=== PATIENT | male | born 1955 | race Caucasian/White ===

== ENCOUNTER 2017-06-08 14:18 | Inpatient (IN) | payer SELFPAY ==
[~2017-06-08] VITALS: Ht 182.9 cm; Wt 100.6 kg
[~2017-06-08 14:18] MED LIST: FOLIC ACID1 MG PO; GLUCOTROL ER2.5 MG PO; HYDRALAZINE HCL50 MG PO; MULTI-DAY VITAM1 TAB PO; NORVASC10 MG PO; PHOSLO667 MG PO; THIAMINE HCL50 MG PO
[2017-06-08 16:18] LABS: BASOPHILS 0.2 % (0-2); EOSINOPHILS 0 % (0-7); HEMATOCRIT 29.4 % (42.0-54.0); IMMATURE GRANULOCYTES 0.2 % (0-5); MCH 34.4 pg (26.0-34.0); MEAN PLATELET VOLUME 10.1 fL (7.4-10.4); MONOCYTES 5.4 % (2-11); NEUTROPHILS 90.2 % (40-80); RBC 2.91 10x6/uL (4.20-6.10); RDW 13.5 % (11.5-14.5); WBC 4.3 10x3/uL (4.8-10.8)
[2017-06-08 16:32] LABS: PLATELET COUNT 98 10x3/uL (130-400)
[2017-06-08 16:53] LABS: PLATELET ESTIMATE DECREASED
[2017-06-08 17:00] LABS: INR 1.13 (0.85-1.17); PROTIME 14.4 SECONDS (11.6-15.0)
[2017-06-08 17:07] LABS: ALBUMIN 3.3 g/dL (3.4-5.0); ALKALINE PHOSPHATASE 41 U/L (46-116); ALT (SGPT) 25 U/L (10-68); BILIRUBIN - TOTAL 0.63 mg/dL (0.2-1.3); CALCIUM 8.5 mg/dL (8.5-10.1); CARBON DIOXIDE 14.5 mmol/L (21.0-32.0); CHLORIDE - SERUM 98 mmol/L (98-107); CREATINE KINASE 268 UL (21-232); CREATININE - SERUM 14.6 mg/dL (0.6-1.3); MAGNESIUM - SERUM 2.2 mg/dL (1.8-2.4); PROTEIN - SERUM 7.6 g/dL (6.4-8.2); SODIUM 133 mmol/L (136-145); UREA NITROGEN 104 mg/dL (7-18); eGFR NON AFRICAN AMERICAN 4 mL/min (90-120)
[2017-06-08 17:09] LABS: CALC OSMOLALITY 300 mosm/kg (275-300); GLUCOSE 139 mg/dL (74-106); TROPONIN-I 0.843 ng/mL (0.000-0.060)
[2017-06-08 17:11] LABS: POTASSIUM - SERUM 7.5 mmol/L (3.5-5.1)
[2017-06-08 17:28] LABS: APPEARANCE CLEAR (CLEAR); BILIRUBIN NEGATIVE (NEGATIVE); COLOR YELLOW (YELLOW); GLUCOSE 100 mg/dL (NEGATIVE); KETONE NEGATIVE (NEGATIVE); NITRITE NEGATIVE (NEGATIVE); PROTEIN 1+ mg/dL (NEGATIVE); SPECIFIC GRAVITY 1.015 (1.005-1.020); UROBILINOGEN NORMAL (NORMAL)
[2017-06-08 17:35] LABS: UDS - AMPHET NEGATIVE QUAL (NEGATIVE); UDS - BARB NEGATIVE QUAL (NEGATIVE); UDS - BENZO POSITIVE QUAL (NEGATIVE); UDS - COCAINE NEGATIVE QUAL (NEGATIVE); UDS - OPIATE NEGATIVE QUAL (NEGATIVE); UDS - PCP NEGATIVE QUAL (NEGATIVE); UDS - THC POSITIVE QUAL (NEGATIVE)
[2017-06-08 17:40] LABS: PRO BNP 154555 pg/mL (0-125)
[2017-06-08 17:41] LABS: CKMB 4.1 U/L (0.0-3.6)
[2017-06-09] VITALS (20 sets, daily range): BP systolic 103–181; BP diastolic 44–114; Ht 182.9 cm; Wt 100.6 kg
--- NOTE | 2017-06-09 00:15 | NUR ---
PT RECIEVED FROM ER. HOOKED TO ICU MONITORING. POSITIONED FOR COMFORT. WILL CONTINUE TO MONITOR PT.
--- NOTE | 2017-06-09 01:00 | NUR ---
PT VERY RESTLESS AND WILL NOT KEEP MONITORS ON. NOTIFIED THAT THE PT HER IN UNIT. RECIEVED NEW ORDERES. WILL CONTINUE TO MONITOR PT.
--- NOTE | 2017-06-09 03:00 | NUR ---
REASSESSMENT COMPLETED. NO ACUTE CHANGES AT THIS TIME. SEE FLOW SHEET FOR FURTHER DETAILS. PT REQUESTED TO USE THE RESTROOM HELPED TO THE BED SIDE COMMODE. DID NOT HAVE A BM. HELPED PT BACK TO BED, WILL CONTINUE TO MONITOR PT.
[2017-06-09 04:45] LABS: BASOPHILS 0 % (0-2); EOSINOPHILS 0 % (0-7); HEMATOCRIT 28.2 % (42.0-54.0); HEMOGLOBIN 9.5 g/dL (13.5-17.5); IMMATURE GRANULOCYTES 0.4 % (0-5); LYMPHOCYTES 3.7 % (15-50); MCH 34.2 pg (26.0-34.0); MCHC 33.7 g/dL (31.0-37.0); MCV 101.4 fL (80.0-100.0); MEAN PLATELET VOLUME 10.3 fL (7.4-10.4); MONOCYTES 4.2 % (2-11); NEUTROPHILS 91.7 % (40-80); PLATELET COUNT 99 10x3/uL (130-400); RBC 2.78 10x6/uL (4.20-6.10); RDW 13.6 % (11.5-14.5)
[2017-06-09 04:46] LABS: WBC 5.7 10x3/uL (4.8-10.8)
[2017-06-09 04:55] LABS: ALBUMIN 3.3 g/dL (3.4-5.0); ANION GAP 32.2 mmol/L (8-16); BILIRUBIN - TOTAL 0.68 mg/dL (0.2-1.3); CALCIUM 8.6 mg/dL (8.5-10.1); CARBON DIOXIDE 13.7 mmol/L (21.0-32.0); CREATININE - SERUM 15.6 mg/dL (0.6-1.3); PROTEIN - SERUM 7.6 g/dL (6.4-8.2)
[2017-06-09 04:58] LABS: POTASSIUM - SERUM 7.9 mmol/L (3.5-5.1)
--- NOTE | 2017-06-09 05:00 | NUR ---
FOUND PT AT THE DOOR ASKING TO USE THE RESTROOM WHICH HE HAD ALREADY USED ON THE FLOOR HELPED PT BACK TO COMMODE. CLEANED THE FLOOR AND THE ROOM. THE HELPED PT BACK TO BED AND POSITIONED FOR COMFORT. WILL CONTINUE TO MONITOR PT
--- NOTE | 2017-06-09 07:00 | NUR ---
REPORT RECIEVED FROM OFF GOING NURSE. SEE FLOW SHEET FOR ASSESSMENT. PT MOANING AND GROANING. PT IS ALERT AND RESPONDS TO HIS NAME, BUT HE WILL ONLY LOOK AT YOU. ABLE TO SAY YES AND NO BUT GARBLED SPEECH. DENIES PAIN AT THIS TIME. K 7.9. WILL RECIEVE DIALYSIS THIS AM. BREATHING NORMAL AND UNLABORD. CALL LIGHT IN REACH. WILL CONT POC
--- NOTE | 2017-06-09 09:00 | NUR ---
DYALSYSIS NURSE AT BEDSIDE.
--- NOTE | 2017-06-09 10:30 | NUR ---
PT RECIEVEING DIALYSIS. BP STABLE AT 120/90 HOWEVER HEART RATE UNCONTROLLED AFIB 120-150. DR MESA IN ICU AND NOTIFIED. NEW ORDRES FOR CARDIZEM GTT AT 10. PT RESTING WITH EYES CLOSED WITH EVEN AND UNLABORED RESP. WILL CONT POC.
--- NOTE | 2017-06-09 11:00 | NUR ---
PT BECOMING MORE ALERT BUT CONFUSED. ABLE TO ASK QUESTIONS IN A GARBLED SPEECH. VERY DISORGANZIED THOUGHT PROCESS. MOANS AND GROANS BUT DENIES PAIN. VSS. CALL LIGHT IN REACH. WILL CONT POC.
--- NOTE | 2017-06-09 13:00 | NUR ---
PT RIPPED OUT PIV IN NECK TRYING TO GET TO THE BSC. PT ALERT BUT CONFUSED. BLEEDING STOPPED AND DRESSING TO NECK APPLIED. PT PERIAREA CLEANSED. ATTEMPTED TO START IV X2 THIS NURSE AND X2 ANOTHER NURSE. DR MESA PAGED. HEART RATE 110 AFIB.
--- NOTE | 2017-06-09 14:00 | NUR ---
PT REFUSING TO HAVE BP AND PULSE OX TAKEN.
--- NOTE | 2017-06-09 14:00 | NUR ---
DR MESA CALLED BACK WITH NEW ORDRES TO DC CARDIZEM GTT AND TO START PO.
[2017-06-09 16:30] LABS: CALCIUM 8.4 mg/dL (8.5-10.1)
--- NOTE | 2017-06-09 16:30 | NUR ---
POTASSIUM LVL 4.9. DR BONITA GANN. N.O TO TRANSFER TO [facility] 2
[2017-06-09 16:32] LABS: ANION GAP 20.2 mmol/L (8-16); CARBON DIOXIDE 24.4 mmol/L (21.0-32.0); CREATININE - SERUM 7.7 mg/dL (0.6-1.3); POTASSIUM - SERUM 4.6 mmol/L (3.5-5.1)
--- NOTE | 2017-06-09 18:35 | NUR ---
PT COMPLAINING OF GENERLIZED PAIN. DR BONITA GANN. N.O FOR TYLENOL 650MG Q4H PRN.
--- NOTE | 2017-06-09 19:15 | NUR ---
REPORT REC'D, PATIENT CARE ASSUMED. ASSESSMENT COMPLETED. SEE FLOW SHEETS FOR ALL FINDINGS. PT RESTLESS IN BED C/O PAIN TO BACK. REFUSED TYLENOL AT THIS TIME .REPOSITIONED FOR COMFORT. UNCONT A-FIB TO 120S. REORIENTED TO SITUATION AND TIME. LEFT ARM FISTULA DRESSING C,D,I. CALL LIGHT IN REACH. BED IN LOW POSITION AND LOCKED. HOB UP. SIDE RAILS UP X2. CALL LIGHT IN REACH. CONT DROPLET ISOLATION PER PROTOCOL. CONT TO MONITOR.
--- NOTE | 2017-06-09 21:15 | NUR ---
PT AGITATED AND RESTLESS C/O OF BACK PAIN, SCREAMING. HR ON MONITOR UNCONT A-FIB TO 150. CARDIZEM 60MG PO GIVEN AT 2008. DR GLOVER CALLED.
--- NOTE | 2017-06-09 21:45 | NUR ---
DR SPANN CALLED BACK, UPDATED ON PT'S STATUS. ORDER REC'D.
--- NOTE | 2017-06-09 23:00 | NUR ---
PT RESTING QUIELTY WITHOUT DISTRESS. CONT UNCONT A-FIB ON CM WITH HR TO 112. NO NEEDS VOICES AT THIS TIME. CPOC.
[2017-06-10] VITALS (9 sets, daily range): BP systolic 114–181; BP diastolic 62–87
--- NOTE | 2017-06-10 01:00 | NUR ---
PT RESTING QUIETLY WITHOUT DISTRESS.NO NEEDS VOICES AT THIS TIME. CALL LIGHT IN REACH. CPOC.
--- NOTE | 2017-06-10 03:00 | NUR ---
PT RESTING QUIETLY WITHOUT DISTRESS. NO NEEDS VOICES. CPOC.
--- NOTE | 2017-06-10 05:00 | NUR ---
PT INCONTINENT OF STOOL, TRYING TO GET TO BSC. BATH GIVEN. LINEN AND GOWN CHANGED. ASSISTED BACK TO BED. REPOSITIONED SELF IN BED, CALL LIGHT IN REACH.
--- NOTE | 2017-06-10 07:00 | NUR ---
REC'D REPORT AND RESUMED CARE, AWAKE AND CONFUSED, O2 VIA NC AT 2L, SAT 97%, LEFT UPPER ARM FISTULA, HR RATE 142, ANSWERS QUESTIONS IN WITH HESITATION, ASSESSMENT COMPLETE PER FLOWSHEET, IN DROPLET ISOLATION, BREAKFAST TRAY TO BEDSIDE, SPOKE WITH DR BROOKS, AM LABS ORDERED, LEFT UPPER ARM FISTULA WITH BRUIE THRILL, CALL LIGHT IN REACH, SELF REPOSITIONS, HOB AT 45 DEGREES, BED IN LOW POSITION, AWAITING TRANSFER TO [facility]
--- NOTE | 2017-06-10 08:00 | NUR ---
BREAKFAST TRAY TO BEDSIDE, INDEPENDENT WITH SET UP AND EATING
--- NOTE | 2017-06-10 08:30 | NUR ---
REPORT CALLED TO JAKE ON MED 2
--- NOTE | 2017-06-10 10:00 | NUR ---
FAMILY AT BEDSIDE. STATUS UPDATED, DISCUSSED TRANSFERING TO ROOM 2134, LOTION TO ROOM FOR TO RUB PATIENTS FEET, NO OTHER NEEDS AT THIS TIME
--- NOTE | 2017-06-10 10:15 | NUR ---
TRANSFERRED TO 2133 VIA BED, AA, ORIENTED X2, HR 140, UCAF, PO CARDIZEM GIVEN, PER SEP ORDER, PRIMARY NURSE JAZMINE CALLED TO BEDSIDE, NO NEEDS AT THIS TIME
--- NOTE | 2017-06-10 10:29 | NUR ---
SITTING UP IN BED VISITING WITH FAMILY. ALERT AND ORIENTED X4. CONTINUES ON O2 AT 2L VIA NC. ORIENTED TO ROOM AND CALL LIGHT AND TV FUNCTIONS. BED IN LOWEST POSITION, SR X2, URINAL WITHIN REACH. FAMILY AT BEDSIDE. WILL CONTINUE TO MONITOR
[2017-06-10 10:40] LABS: BASOPHILS 0.3 % (0-2); EOSINOPHILS 0.3 % (0-7); HEMATOCRIT 28.4 % (42.0-54.0); HEMOGLOBIN 9.7 g/dL (13.5-17.5); IMMATURE GRANULOCYTES 0.3 % (0-5); MCHC 34.2 g/dL (31.0-37.0); MCV 99.6 fL (80.0-100.0); MEAN PLATELET VOLUME 10.3 fL (7.4-10.4); MONOCYTES 4.5 % (2-11); NEUTROPHILS 83.6 % (40-80); PLATELET COUNT 96 10x3/uL (130-400); RBC 2.85 10x6/uL (4.20-6.10); RDW 13.2 % (11.5-14.5)
[2017-06-10 10:47] LABS: ALBUMIN 2.9 g/dL (3.4-5.0); ANION GAP 19.2 mmol/L (8-16); CALCIUM 8.2 mg/dL (8.5-10.1); CARBON DIOXIDE 25.1 mmol/L (21.0-32.0); PHOSPHOROUS 8.3 mg/dL (2.5-4.9); POTASSIUM - SERUM 4.3 mmol/L (3.5-5.1)
[2017-06-10 10:49] LABS: WBC 3.4 10x3/uL (4.8-10.8)
[2017-06-10 10:56] LABS: CREATININE - SERUM 9.7 mg/dL (0.6-1.3)
--- NOTE | 2017-06-10 16:09 | NUR ---
RESTING QUIETLY IN BED. STILL MAKES SMALL AMT OF URINE. DENIES PAIN OR INCREASED SOB. DENIES DIARRHEA TODAY
--- NOTE | 2017-06-10 20:09 | NUR ---
PT IN BED RESTING QUIETLY. FAMLIY AT BEDSIDE. BREATHING EVEN AND UNLABORED. WILL CTM.
--- NOTE | 2017-06-10 21:43 | NUR ---
PT C/O PAIN AND ANXIETY. BECOMING AGITATED. PRN ATIVAN AND TYLENOL GIVEN WITH PM MEDS. BREATHING EVEN AND UNLABORED. DENIES ANY OTHER NEEDS AT THIS TIME. BED IN LOW POSITION, CALL LIGHT WITHIN REACH.
--- NOTE | 2017-06-10 23:04 | NUR ---
PT BECAME ANXIOUS AND GOT OUT OF HIS BED AND WALKED OUT INTO THE HALLWAY. PT NOT STEADY ON HIS FEET. TOOK PT BACK TO BED AND HE GOT BACK IN BED BUT IS MOANING AND SHOUTING. BED ALARM TURNED ON. WILL GIVE NEXT PRN DOSE OF ATIVAN WHEN AVAILABLE AT 1130.
--- NOTE | 2017-06-11 01:46 | NUR ---
PT REFSUED MIDNIGHT VITALS.
[2017-06-11 06:37] VITALS: BP 140/66
--- NOTE | 2017-06-11 07:43 | NUR ---
PATIENT IS ALERT WITH SOME CONFUSION. TAKEN DOWN FOR CHEST X-RAY BY STAFF. OXYGEN ON AT 2L PER N/C. PATIENT REMAINS IN DROPLET ISOLATION. RESERVE LEFT ARM.
[2017-06-11 08:00] VITALS: BP 185/87
--- NOTE | 2017-06-11 09:37 | NUR ---
FAMILY BROUGHT IN PATIENTS HOME MEDICATIONS. DR. WHITING INTO SEE PATIENT. GIVEN LIST OF HOME MEDICATIONS
--- NOTE | 2017-06-11 10:36 | NUR ---
GIS DEVELOPER IN ROOM STARTING DIALYSIS. PATIENT GIVEN PRN ATIVAN FOR ANXIEITY
[2017-06-11 12:00] VITALS: BP 153/82
--- NOTE | 2017-06-11 12:28 | NUR ---
TALKED WITH PATIENT. PATIENT REFUSING TO BE STUCK BY DIALYSIS
--- NOTE | 2017-06-11 12:34 | NUR ---
PATIENT REFUSED DIALYSIS. PATIENT REFUSED INSULIN TWO UNITS FOR GLUCOSE LEVEL OF 179. STATES HE IS REFUSING TO BE STUCK.
--- NOTE | 2017-06-11 12:35 | NUR ---
PATIENT REFUSED RENVELA
[2017-06-11 16:00] VITALS: BP 177/81
--- NOTE | 2017-06-11 17:16 | NUR ---
GLUCOSE LEVEL 188. PATIENT LEFT THIS NURSE GIVE TWO UNITS OF SLIDING SCALE INSULIN PER ORDER
--- NOTE | 2017-06-11 18:18 | NUR ---
PATIENTS SON CALLED WITH REGARDS TO UPDATE FOR THIS PATIENT. SON STATED THAT HE WILL BE IN AND TAKE PATIENTS HOME MEDICATION HOME.
--- NOTE | 2017-06-11 20:00 | NUR ---
PT TELLS HIGHWAY MAINTAINER ON ROUNDS FOR VS THAT HE ROLLED OUT OF BED, BUT GOT UP AND GOT BACK INTO BED ON HIS OWN. NURSE TO ROOM. ASSESSED PT. HE STATES HE ROLLED OUT OF THE BED AND HIT HIS HEAD. ASSESSED HEAD. NO CONTUSIONS/BRUISES OR BLOOD AND NO SPECIFIC AREA INDICATED BY PATIENT. HE TELLS NURSE HE NEEDS A PAIN SHOT. NEURO VS CHECKED. ALL WNL. EXPLAINED TO PT THAT IF HE HIT HIS HEAD, THEN MD WILL BE CONTACTED FOR ORDERS TO HAVE HIS HEAD EXAMINED. PT STATES "I DON'T NEED THAT" AND TELLS NURSE TO JUST GET HIM SOME PAIN MED FOR HIS BACK. ASKED PT IS HE MEANT HIS HEAD AND HE SAID "OH, YEAH MY BACK HURTS FOR THE LAST COUPLE OF MONTHS". ASSESSED BACK AND THERE ARE NO SIGNS OF ABRASIONS/BRUISING OR SWELLING. EXPLAINED TO PT THAT MD WILL BE CONTACTED TO NOTIFY OF FALL. PT STATES HE ONLY WANTS PAIN MEDS, HE DOES NOT NEED HIS HEAD EXAMINED. FALL PRECAUTIONS INSTATED. SR UP X 2 AND BED ALARM ACTIVATED.
[2017-06-11 21:07] VITALS: BP 153/62
--- NOTE | 2017-06-11 21:15 | NUR ---
SPOKE WITH PATIENT AFTER TALKING TO DR WHITING AND SAID IF ANY PART OF HIM NEEDS TO BE XRAYED OR EXAMINED TO PLEASE LET NURSE KNOW AND THAT ALL THE MD WANTED HIM TO TAKE FOR PAIN WAS TYLENOL. PT DISGRUNTLED ABOUT THIS INFORMATION.
--- NOTE | 2017-06-11 21:22 | NUR ---
DR ALY NOTIFIED OF PT FALL. NEW ORDERS RECIEVED.
--- NOTE | 2017-06-11 21:45 | NUR ---
SPOKE WITH PAXTON ON PHONE AND SHE SAID SHE IS "LIKE A DAUGHTER". REPORTED PT'S REPORT THAT HE FELL OUT OF BED BUT REFUSING ANY TREATMENT. PAXTON STATES PT IS JUST LONELY AND WANTS COMPANY BUT SHE IS IN [place]. SHE DID TALK TO HIM IN ROOM ON PHONE.
--- NOTE | 2017-06-11 23:46 | NUR ---
BEDTIME MEDS GIVEN. FSBS 185, 2 UNITS OF HUMULIN R GIVEN IN ABDOMEN. PT TRYING TO GET NURSE TO GIVE IT BEHIND HIS LEFT ARM GRAFT. INSTRUCTED PT THAT HIS DIALYSIS ARM SHOULD NOT BE STUCK/POKED OR EVEN HAD BP'S TAKEN IN IT. PT UNCONCERNED. NEURO CHECKS AGAIN SINCE PATIENT IS SAYING HE HIT HIS HEAD WHEN HE ROLLED OUT OF BED. TARAH@ 2MM. NO CONTUSIONS/SWELLINGS/ABRASIONS OR BURRIS NOTED ON PT'S BACK OR HEAD. WILL CONTINUE TO MONITOR. DID GIVE HIM ATIVAN 2MG BY MOUTH TO HELP HIM BE CALMER. HE HAS LAID IN BED MOANING AND GROANING AND EVEN CONTINUES THIS ACTIVITY WHEN NURSE IN ROOM TALKING TO HIM.
[2017-06-12 00:42] VITALS: BP 176/85
--- NOTE | 2017-06-12 02:01 | NUR ---
RESTING IN BED. HAS TURNED OFF TV AND IS TRYING TO SLEEP. CALL LIGHT IN REACH. FALL PRECAUTIONS. CPOC.
[2017-06-12 04:46] VITALS: BP 144/69
--- NOTE | 2017-06-12 07:20 | NUR ---
ASSESSMENT COMPLETED.PT IS ON 02 AT 2 L/M PER NC. NO IV. LEFT FORE ARM GRAFT FOR DIALYSIS. PT IS ON DROPPLET ISOLATION. ALERT AND ORIENTED. SR UP WITH CALL LIGHT IN REACH
--- NOTE | 2017-06-12 07:30 | NUR ---
RESTING QUIETLY EYES CLOSED RESP UNLABORED NAD NOTED
[2017-06-12 08:00] VITALS: BP 187/88
[2017-06-12 12:00] VITALS: BP 178/74
[2017-06-12 16:00] VITALS: BP 157/89
--- NOTE | 2017-06-12 18:04 | NUR ---
LYING QUIETLY WITH NO COMPLAINTS. ON AT 2 L/M PER NC. WILL MONITOR
--- NOTE | 2017-06-12 19:32 | NUR ---
RESUMED CARE OF PT, LYING IN BED RESPIRATIONS EVEN AND UNLABORED ON 2LPM VIA NC. CALL LIGHT IN REACH. NO NEEDS NOTED AT THIS TIME, WILL CONTINUE TO MONITOR. SEE NURSE ASSESSMENT.
[2017-06-12 20:17] VITALS: BP 101/61
--- NOTE | 2017-06-12 23:12 | NUR ---
LYING IN BED WITH EYES CLOSED, CALL LIGHT IN REACH. WILL CONTINUE TO MONITOR.
[2017-06-13 00:32] VITALS: BP 148/55
[2017-06-13 05:22] VITALS: BP 150/71
[2017-06-13 05:40] LABS: BASOPHILS 0.3 % (0-2); EOSINOPHILS 1.3 % (0-7); HEMATOCRIT 24.6 % (42.0-54.0); HEMOGLOBIN 8.7 g/dL (13.5-17.5); IMMATURE GRANULOCYTES 0.3 % (0-5); LYMPHOCYTES 25.2 % (15-50); MCH 34.1 pg (26.0-34.0); MCHC 35.4 g/dL (31.0-37.0); MCV 96.5 fL (80.0-100.0); MEAN PLATELET VOLUME 10.2 fL (7.4-10.4); MONOCYTES 5.7 % (2-11); NEUTROPHILS 67.2 % (40-80); PLATELET COUNT 111 10x3/uL (130-400); RBC 2.55 10x6/uL (4.20-6.10); RDW 12.8 % (11.5-14.5); WBC 3.2 10x3/uL (4.8-10.8)
[2017-06-13 06:07] LABS: ALBUMIN 2.6 g/dL (3.4-5.0); ANION GAP 22.7 mmol/L (8-16); CALCIUM 7.3 mg/dL (8.5-10.1); CARBON DIOXIDE 21.9 mmol/L (21.0-32.0); CREATININE - SERUM 12.3 mg/dL (0.6-1.3); POTASSIUM - SERUM 4.6 mmol/L (3.5-5.1)
[2017-06-13 06:10] LABS: PHOSPHOROUS 9.7 mg/dL (2.5-4.9)
[2017-06-13 08:00] VITALS: BP 153/93
--- NOTE | 2017-06-13 09:36 | NUR ---
ASSESSMENT DONE. DENIES NEEDS.
--- NOTE | 2017-06-13 09:48 | NUR ---
PATIENT IS SLEEPING AT THIS TIME, NAD NOTED. CHEST RISES AND FALLS EQUALLY. BED LOW AND LOCKED. CALL LIGHT IN REACH. CPOC
[2017-06-13] MEDS ORDERED: ZOLOFT50 MG PO (10:57)
[2017-06-13 12:00] VITALS: BP 160/67
--- NOTE | 2017-06-13 14:20 | NUR ---
DC HOME PER PERSONAL CAR
--- NOTE | 2017-06-13 14:20 | NUR ---
DC GIVEN TO PT
--- NOTE | 2017-06-13 14:28 | NUR ---
Patient Name: RASHIDA OVIEDO Admission Status: ER Accout number: [id number] Admission Date: 06-08-2017 : 1955 Admission Diagnosis:ALTERED MENTAL STATUS, UNSPECIFIED Attending: CHETNA Current LOS: 5 Anticipated DC Date: 06-13-2017 Planned Disposition: Home Primary Insurance: UNINSURED DISCOUNT PLAN Discharge Planning Comments: * Is the patient Alert and Oriented? Yes 0 * How many steps to enter\exit or inside your home? 3 0 * PCP NONE 0 * Pharmacy [facility] ON [address] 0 * Preadmission Environment Home with Family 0 * ADLs Independent 0 * Equipment None 0 * Other Equipment NO MEDICAL EQUIPMENT PROVIDER PREFERENCE 0 * List name and contact numbers for known caregivers / representatives who currently or will assist patient after discharge: CLAY OVIEDO, BROTHER, 0 * Community resources currently utilized Other 0 * Please name any agencies selected above. OUTPATIENT DAILYSIS, [facility], [place], [facility], SON DRIVES PT TO AND FROM DIALYSIS. 0 * Additional services required to return to the preadmission environment? No 0 * Can the patient safely return to the preadmission environment? Yes 0 * Has this patient been hospitalized within the prior 30 days at any hospital? No 0 CM MET WITH PT IN ROOM TO DISCUSS DISCHARGE PLANNING AND NEEDS. PT REPORTS LIVING AT HOME INDEPENDENTLY WITH HIS ADULT SISTER AND MOM. PT HAS NO MEDICAL EQUIPMENT AND NO OUTSIDE SERVICES ASSISTING IN THE HOME. PT GOES TO [facility] ON [facility], [place] [address] SCHEDULE, HIS SON DRIVES HIM TO AND FROM DIALYSIS.CM DISCUSSED AVAILABILITY OF HOME HEALTH, REHAB SERVICES AND MEDICAL EQUIPMENT. PT DENIES DISCHARGE NEEDS, REPORTS HIS BROTHER WILL PICK HIM UP TODAY FOR DISCHARGE HOME. PT REPORTS HE MOVED HERE ON WEEK AGO FROM [place], HE CANCELLED HIS [place] MEDICAID POLICY AND NEEDS TO APPLY IN [place]. CM DISCUSSED LOCATION AND HOURS OF THE [facility] DEPARTMENT OF HUMAN SERVICES OFFICE, PT REPORTS KNOWING THE LOCATION AND STATES HE WILL FOLLOW UP WITH THE APPLICATION FOR MEDICAID SERVICES. CM NOTIFIED CASEWORKER NURSE. Psychologist Private Practice: [facility]
== END 2017-06-13 14:20 | disposition home or self-care (01) | DRG 682 ==
LOC: D.ER 14:18 → D.M2 23:50 → D.ICU 23:50 → D.M2 06-10 09:45
PROVIDERS: Emergency Medicine; Family Medicine; Nurse Practitioner Family; ADMIT Internal Medicine
DX: I12.0 Hypertensive chronic kidney disease with stage 5 chronic kidney disease or end stage renal disease (principal); N18.6 End stage renal disease; E87.5 Hyperkalemia; E11.22 Type 2 diabetes mellitus with diabetic chronic kidney disease; Z99.2 Dependence on renal dialysis; R41.82 Altered mental status, unspecified; F12.90 Cannabis use, unspecified, uncomplicated; J44.9 Chronic obstructive pulmonary disease, unspecified; R40.2243 Coma scale, best verbal response, confused conversation, at hospital admission; R40.2353 Coma scale, best motor response, localizes pain, at hospital admission; R40.2143 Coma scale, eyes open, spontaneous, at hospital admission

== ENCOUNTER 2017-07-28 00:07 | Observation (INO) | payer SELFPAY ==
[~2017-07-28] VITALS: Ht 182.9 cm; Wt 95.0 kg
[~2017-07-28 00:07] MED LIST changes: +ZOLOFT50 MG PO
[2017-07-28 00:34] LABS: HEMATOCRIT 24.5 % (42.0-54.0); HEMOGLOBIN 8.3 g/dL (13.5-17.5); LYMPHOCYTES 8.7 % (15-50); MCH 33.5 pg (26.0-34.0); MCHC 33.9 g/dL (31.0-37.0); MCV 98.8 fL (80.0-100.0); MEAN PLATELET VOLUME 9.8 fL (7.4-10.4); NEUTROPHILS 85.2 % (40-80); PLATELET COUNT 108 10x3/uL (130-400); RBC 2.48 10x6/uL (4.20-6.10); RDW 14.1 % (11.5-14.5); WBC 5.5 10x3/uL (4.8-10.8)
[2017-07-28 00:48] LABS: ALBUMIN 2.9 g/dL (3.4-5.0); ANION GAP 23.8 mmol/L (8-16); BILIRUBIN - TOTAL 0.5 mg/dL (0.2-1.3); CALCIUM 7.6 mg/dL (8.5-10.1); CREATININE - SERUM 13.7 mg/dL (0.6-1.3); PROTEIN - SERUM 6.9 g/dL (6.4-8.2)
[2017-07-28 00:50] LABS: POTASSIUM - SERUM 6.8 mmol/L (3.5-5.1)
[2017-07-28 02:17] LABS: APPEARANCE HAZY (CLEAR); BILIRUBIN NEGATIVE (NEGATIVE); COLOR YELLOW (YELLOW); GLUCOSE 100 mg/dL (NEGATIVE); KETONE NEGATIVE (NEGATIVE); NITRITE NEGATIVE (NEGATIVE); PROTEIN 3+ mg/dL (NEGATIVE); SPECIFIC GRAVITY 1.015 (1.005-1.020); UROBILINOGEN NORMAL (NORMAL)
[2017-07-28 02:19] LABS: AMORPHOUS SEDIMENT <1+ /lpf (NONE SEEN); BACTERIA FEW /hpf (NONE SEEN); EPITHELIAL CELLS 0-5 /hpf (0-5); RED CELLS - URINE 0-5 /hpf (0-5); WHITE CELLS - URINE NSEEN /hpf (0-5)
[2017-07-28 04:00] VITALS: BP 120/52
[2017-07-28 04:09] VITALS: BP 98/68; BMI 28.4
[2017-07-28 06:57] VITALS: Ht 182.9 cm; Wt 95.0 kg
[2017-07-28 08:53] VITALS: BP 179/77
[2017-07-28 10:31] LABS: BASOPHILS 0 % (0-2); EOSINOPHILS 0.6 % (0-7); HEMATOCRIT 24.4 % (42.0-54.0); HEMOGLOBIN 8.3 g/dL (13.5-17.5); IMMATURE GRANULOCYTES 0.3 % (0-5); LYMPHOCYTES 22.6 % (15-50); MCH 34.2 pg (26.0-34.0); MCV 100.4 fL (80.0-100.0); MEAN PLATELET VOLUME 10.4 fL (7.4-10.4); NEUTROPHILS 71.5 % (40-80); PLATELET COUNT 120 10x3/uL (130-400); RBC 2.43 10x6/uL (4.20-6.10); RDW 14.1 % (11.5-14.5)
[2017-07-28 10:33] LABS: WBC 3.4 10x3/uL (4.8-10.8)
[2017-07-28 11:06] LABS: ALBUMIN 3.1 g/dL (3.4-5.0); ANION GAP 25.6 mmol/L (8-16); BILIRUBIN - TOTAL 0.56 mg/dL (0.2-1.3); CALCIUM 8.1 mg/dL (8.5-10.1); CARBON DIOXIDE 17.8 mmol/L (21.0-32.0); CREATININE - SERUM 12.3 mg/dL (0.6-1.3); PROTEIN - SERUM 7.1 g/dL (6.4-8.2)
[2017-07-28 11:08] LABS: POTASSIUM - SERUM 5.4 mmol/L (3.5-5.1)
[2017-07-28 12:24] VITALS: BP 179/90
== END 2017-07-28 15:00 | disposition home or self-care (01) ==
LOC: D.ER 00:07 → D.MS 02:22 → OBSVTIME 02:22 → D.MS 15:00
PROVIDERS: Family Medicine
DX: E87.6 Hypokalemia (principal); E11.22 Type 2 diabetes mellitus with diabetic chronic kidney disease; N18.6 End stage renal disease; Z99.2 Dependence on renal dialysis; Z91.15 Patient's noncompliance with renal dialysis; K73.9 Chronic hepatitis, unspecified; F15.10 Other stimulant abuse, uncomplicated; F12.10 Cannabis abuse, uncomplicated; F17.200 Nicotine dependence, unspecified, uncomplicated

== ENCOUNTER 2017-11-01 14:23 | Inpatient (IN) | payer SELFPAY ==
[~2017-11-01] VITALS: Ht 182.9 cm; Wt 93.1 kg
[2017-11-01 15:35] LABS: BASOPHILS 0 % (0-2); EOSINOPHILS 1.4 % (0-7); HEMOGLOBIN 10.5 g/dL (13.5-17.5); IMMATURE GRANULOCYTES 0.2 % (0-5); LYMPHOCYTES 15.2 % (15-50); MCH 31.4 pg (26.0-34.0); MCHC 33.9 g/dL (31.0-37.0); MCV 92.8 fL (80.0-100.0); MONOCYTES 8.1 % (2-11); NEUTROPHILS 75.1 % (40-80); RBC 3.34 10x6/uL (4.20-6.10); RDW 14.6 % (11.5-14.5); WBC 4.3 10x3/uL (4.8-10.8)
[2017-11-01 15:39] LABS: PLATELET COUNT 173 10x3/uL (130-400)
[2017-11-01 16:06] LABS: ALBUMIN 3.3 g/dL (3.4-5.0); ALKALINE PHOSPHATASE 70 U/L (46-116); ALT (SGPT) 26 U/L (10-68); CALC OSMOLALITY 281 mosm/kg (275-300); CARBON DIOXIDE 26.4 mmol/L (21.0-32.0); CHLORIDE - SERUM 102 mmol/L (98-107); CKMB 4.6 U/L (0.0-3.6); CREATINE KINASE 203 UL (21-232); CREATININE - SERUM 5.6 mg/dL (0.6-1.3); GLUCOSE 97 mg/dL (74-106); POTASSIUM - SERUM 4.7 mmol/L (3.5-5.1); PROTEIN - SERUM 7.7 g/dL (6.4-8.2); SODIUM 140 mmol/L (136-145); UREA NITROGEN 20 mg/dL (7-18); eGFR NON AFRICAN AMERICAN 11 mL/min (90-120)
[2017-11-01 16:26] LABS: APPEARANCE CLEAR (CLEAR); BILIRUBIN NEGATIVE (NEGATIVE); COLOR YELLOW (YELLOW); GLUCOSE 100 mg/dL (NEGATIVE); KETONE SMALL mg/dL (NEGATIVE); NITRITE NEGATIVE (NEGATIVE); PROTEIN 3+ mg/dL (NEGATIVE); SPECIFIC GRAVITY 1.005 (1.005-1.020); UROBILINOGEN NORMAL (NORMAL)
[2017-11-01 20:00] VITALS: BP 168/57
[2017-11-01 20:57] VITALS: BP 168/57; BMI 27.6
[2017-11-02] VITALS: BP 91/47
[2017-11-02 04:00] VITALS: BP 94/61
[2017-11-02 08:00] VITALS: BP 171/54
[2017-11-02 12:00] VITALS: BP 177/55
[2017-11-02 12:26] VITALS: Ht 182.9 cm; Wt 93.1 kg
[2017-11-02 17:09] VITALS: BP 172/96
[2017-11-02 21:01] VITALS: BP 142/66
[2017-11-03 06:07] LABS: BASOPHILS 0.3 % (0-2); EOSINOPHILS 2.1 % (0-7); HEMATOCRIT 29.6 % (42.0-54.0); HEMOGLOBIN 9.7 g/dL (13.5-17.5); IMMATURE GRANULOCYTES 0.3 % (0-5); LYMPHOCYTES 33.6 % (15-50); MCH 31.4 pg (26.0-34.0); MCHC 32.8 g/dL (31.0-37.0); MEAN PLATELET VOLUME 10.2 fL (7.4-10.4); MONOCYTES 6.6 % (2-11); NEUTROPHILS 57.1 % (40-80); PLATELET COUNT 145 10x3/uL (130-400); RBC 3.09 10x6/uL (4.20-6.10); RDW 15.1 % (11.5-14.5); WBC 3.8 10x3/uL (4.8-10.8)
[2017-11-03 06:12] LABS: MCV 95.8 fL (80.0-100.0)
[2017-11-03 06:22] VITALS: BP 103/46
[2017-11-03 06:36] LABS: ANION GAP 18.9 mmol/L (8-16); BILIRUBIN - DIRECT 0.25 mg/dL (0.00-0.30); BILIRUBIN - INDIRECT 0.42 mg/dL (0.00-1.00); BILIRUBIN - TOTAL 0.67 mg/dL (0.2-1.3); CALCIUM 7.1 mg/dL (8.5-10.1); CARBON DIOXIDE 24.8 mmol/L (21.0-32.0); POTASSIUM - SERUM 4.7 mmol/L (3.5-5.1); PROTEIN - SERUM 6.8 g/dL (6.4-8.2)
[2017-11-03 06:38] LABS: CREATININE - SERUM 9.8 mg/dL (0.6-1.3); PHOSPHOROUS 9.2 mg/dL (2.5-4.9)
[2017-11-03 08:51] VITALS: BP 76/35
[2017-11-03 11:40] VITALS: BP 100/39
[2017-11-03 16:48] VITALS: BP 148/60
[2017-11-03 22:13] VITALS: BP 137/65
[2017-11-04 01:26] VITALS: BP 160/46
[2017-11-04 05:00] VITALS: BP 155/89
[2017-11-04 05:48] LABS: BASOPHILS 0.2 % (0-2); EOSINOPHILS 2.9 % (0-7); HEMATOCRIT 31.4 % (42.0-54.0); HEMOGLOBIN 10.5 g/dL (13.5-17.5); LYMPHOCYTES 32.9 % (15-50); MCH 31.6 pg (26.0-34.0); MCHC 33.4 g/dL (31.0-37.0); MCV 94.6 fL (80.0-100.0); MEAN PLATELET VOLUME 10.6 fL (7.4-10.4); MONOCYTES 6.8 % (2-11); NEUTROPHILS 57.2 % (40-80); PLATELET COUNT 149 10x3/uL (130-400); RBC 3.32 10x6/uL (4.20-6.10); RDW 14.7 % (11.5-14.5); WBC 4.4 10x3/uL (4.8-10.8)
[2017-11-04 06:08] LABS: ANION GAP 16.1 mmol/L (8-16); CALCIUM 7.7 mg/dL (8.5-10.1); CARBON DIOXIDE 25.3 mmol/L (21.0-32.0); CREATININE - SERUM 8.9 mg/dL (0.6-1.3); PHOSPHOROUS 7.6 mg/dL (2.5-4.9); POTASSIUM - SERUM 4.4 mmol/L (3.5-5.1)
[2017-11-04 08:38] VITALS: BP 140/65
[2017-11-04 10:22] LABS: HEPATITIS C ANTIBODY >11.0 (0.0-0.9)
[2017-11-04 11:40] VITALS: BP 152/69
[2017-11-04 15:47] VITALS: BP 149/77
[2017-11-04 20:00] VITALS: BP 162/71
[2017-11-05 01:00] VITALS: BP 166/98
[2017-11-05 05:00] VITALS: BP 148/74
[2017-11-05 05:37] LABS: BASOPHILS 0.2 % (0-2); HEMATOCRIT 29.4 % (42.0-54.0); HEMOGLOBIN 9.8 g/dL (13.5-17.5); IMMATURE GRANULOCYTES 0.2 % (0-5); LYMPHOCYTES 28.2 % (15-50); MCH 31.3 pg (26.0-34.0); MCHC 33.3 g/dL (31.0-37.0); MCV 93.9 fL (80.0-100.0); MEAN PLATELET VOLUME 10.1 fL (7.4-10.4); MONOCYTES 6.8 % (2-11); NEUTROPHILS 62.6 % (40-80); PLATELET COUNT 144 10x3/uL (130-400); RBC 3.13 10x6/uL (4.20-6.10); RDW 14.5 % (11.5-14.5); WBC 4.5 10x3/uL (4.8-10.8)
[2017-11-05 06:04] LABS: ANION GAP 15.8 mmol/L (8-16); CALCIUM 7.4 mg/dL (8.5-10.1); CARBON DIOXIDE 25.1 mmol/L (21.0-32.0); CREATININE - SERUM 10.7 mg/dL (0.6-1.3); POTASSIUM - SERUM 4.9 mmol/L (3.5-5.1)
[2017-11-05 06:07] LABS: PHOSPHOROUS 9.9 mg/dL (2.5-4.9)
[2017-11-05 08:15] VITALS: BP 140/98
[2017-11-05] MEDS ORDERED: CATAPRES0.2 MG PO (09:45)
[2017-11-05] MEDS ORDERED: NORMODYNE / TR200 MG PO (09:46)
[2017-11-05 11:31] VITALS: BP 159/71
== END 2017-11-05 15:14 | disposition home or self-care (01) | DRG 304 ==
LOC: D.ER 14:23 → D.M2 17:52 → D.EDHOLD 17:52 → OBSVTIME 17:52 → D.M2 18:20
PROVIDERS: Emergency Medicine; Internal Medicine Nephrology
PROC: 5A1D70Z Performance of Urinary Filtration, Intermittent, Less than 6 Hours Per Day (ICD-10-PCS; principal; 2017-11-03)
DX: I16.0 Hypertensive urgency (principal); N18.6 End stage renal disease; I12.0 Hypertensive chronic kidney disease with stage 5 chronic kidney disease or end stage renal disease; Z99.2 Dependence on renal dialysis; E11.22 Type 2 diabetes mellitus with diabetic chronic kidney disease; J44.9 Chronic obstructive pulmonary disease, unspecified; F10.10 Alcohol abuse, uncomplicated; F32.9 Major depressive disorder, single episode, unspecified; D63.1 Anemia in chronic kidney disease; Z91.19 Patient's noncompliance with other medical treatment and regimen; E83.39 Other disorders of phosphorus metabolism; K75.9 Inflammatory liver disease, unspecified; R11.2 Nausea with vomiting, unspecified; Z72.0 Tobacco use

== ENCOUNTER 2017-12-21 19:32 | Emergency (ER) | payer MEDICAID ==
[2017-11-02 12:26] VITALS: BMI 27.6
[~2017-12-21 19:32] MED LIST changes: +CATAPRES0.2 MG PO; +NORMODYNE / TR200 MG PO
[2017-12-21 20:02] LABS: BASOPHILS 0.4 % (0-2); EOSINOPHILS 0.4 % (0-7); HEMATOCRIT 30.6 % (42.0-54.0); HEMOGLOBIN 10.5 g/dL (13.5-17.5); IMMATURE GRANULOCYTES 0.2 % (0-5); MCH 31.8 pg (26.0-34.0); MCHC 34.3 g/dL (31.0-37.0); MCV 92.7 fL (80.0-100.0); MEAN PLATELET VOLUME 10.4 fL (7.4-10.4); MONOCYTES 5.9 % (2-11); NEUTROPHILS 78.1 % (40-80); RDW 13.6 % (11.5-14.5); WBC 4.5 10x3/uL (4.8-10.8)
[2017-12-21 20:12] LABS: ALBUMIN 3.5 g/dL (3.4-5.0); ANION GAP 16.4 mmol/L (8-16); BILIRUBIN - TOTAL 1.5 mg/dL (0.2-1.3); CALCIUM 7.8 mg/dL (8.5-10.1); CARBON DIOXIDE 26.1 mmol/L (21.0-32.0); CREATININE - SERUM 8.2 mg/dL (0.6-1.3); POTASSIUM - SERUM 4.5 mmol/L (3.5-5.1); PROTEIN - SERUM 7.9 g/dL (6.4-8.2)
[2017-12-21 20:16] LABS: PLATELET COUNT 100 10x3/uL (130-400)
[2017-12-21 20:59] LABS: MAGNESIUM - SERUM 1.8 mg/dL (1.8-2.4); TROPONIN-I 0.037 ng/mL (0.000-0.060)
== END 2017-12-21 22:02 | disposition home or self-care (01) ==
LOC: D.ER 19:32
PROVIDERS: Family Medicine
DX: R11.10 Vomiting, unspecified (principal); Z99.2 Dependence on renal dialysis; I12.0 Hypertensive chronic kidney disease with stage 5 chronic kidney disease or end stage renal disease; N18.6 End stage renal disease; E11.9 Type 2 diabetes mellitus without complications

== ENCOUNTER 2018-08-15 08:47 | Inpatient (IN) | payer MEDICAID ==
[~2018-08-15] VITALS: Ht 182.9 cm; Wt 90.0 kg
--- NOTE | 2018-08-15 09:18 | NUR ---
SPOKE WITH [facility] ON [facility] TO GET MEDICATION LIST D/T PT BEING UNABLE TO RECALL ANY MEDICATIONS THAT HE IS TAKING. PHARMACY STATES THAT MOST RECENT MED WAS NORVASC 10MG PO IN MAY 2018. PT STATES THERE ARE OTHER MEDS HE TAKES, BUT UNABLE TO PROVIDE LIST OR RECALL MEDS. EDP NOTIFIED.
[2018-08-15 10:01] LABS: INR 1.31 (0.85-1.17); PROTIME 15.7 SECONDS (11.6-15.0)
[2018-08-15 10:11] LABS: HEMATOCRIT 28.9 % (42.0-54.0); HEMOGLOBIN 9.9 g/dL (13.5-17.5); LYMPHOCYTES 13.5 % (15-50); MCH 31.7 pg (26.0-34.0); MCHC 34.3 g/dL (31.0-37.0); MCV 92.6 fL (80.0-100.0); MEAN PLATELET VOLUME 9.1 fL (7.4-10.4); NEUTROPHILS 81.1 % (40-80); PLATELET COUNT 113 10x3/uL (130-400); RBC 3.12 10x6/uL (4.20-6.10); RDW 12.9 % (11.5-14.5); WBC 4.4 10x3/uL (4.8-10.8)
--- NOTE | 2018-08-15 10:17 | NUR ---
PT ASSISTED ONTO BEDSIDE TOILET.
[2018-08-15 10:20] LABS: ALBUMIN 3.6 g/dL (3.4-5.0); ALKALINE PHOSPHATASE 94 U/L (46-116); ALT (SGPT) 41 U/L (10-68); BILIRUBIN - TOTAL 0.65 mg/dL (0.2-1.3); CALC OSMOLALITY 313 mosm/kg (275-300); CARBON DIOXIDE 14.8 mmol/L (21.0-32.0); CHLORIDE - SERUM 98 mmol/L (98-107); CKMB 9.9 U/L (0.0-3.6); CREATINE KINASE 609 UL (21-232); GLUCOSE 130 mg/dL (74-106); PROTEIN - SERUM 8.2 g/dL (6.4-8.2); SODIUM 136 mmol/L (136-145); TROPONIN-I 0.036 ng/mL (0.000-0.060); UREA NITROGEN 124 mg/dL (7-18); eGFR NON AFRICAN AMERICAN 4 mL/min (90-120)
[2018-08-15 10:29] LABS: CALCIUM 5.5 mg/dL (8.5-10.1); POTASSIUM - SERUM 8.1 mmol/L (3.5-5.1)
--- NOTE | 2018-08-15 10:30 | NUR ---
NOTIFIED OF CRITICAL LABS. POTASSIUM 8.1 AND CALCIUM 5.5 CRITICAL LAB SHEET COMPLETED. EDP NOTIFIED.
[2018-08-15 12:01] VITALS: BP 173/62
--- NOTE | 2018-08-15 13:06 | NUR ---
PT TRANSPORTED VIA TO DIALYSIS UNIT AT 1256. NO DISTRESS NOTED.
--- NOTE | 2018-08-15 14:31 | NUR ---
ATTEMPTED TO CALL REPORT ON PT, NURSE UNAVAILABLE. PT IN DIALYSIS.
--- NOTE | 2018-08-15 15:10 | NUR ---
REPORT CALLED TO MICAELA PERRY, PT REMAINS IN DIALYSIS AT THIS TIME. DIALYSIS UNIT AWARE OF ROOM ASSIGNMENT. PT BELONGING IN ED TAKEN TO ROOM 2112.
[2018-08-15 16:31] VITALS: BP 224/85
--- NOTE | 2018-08-15 18:15 | NUR ---
ADMITTED PT FROM DIALYSIS THAT CAME FROM ER. PT IS A&O SITTING UP IN BED EATING DINNER. PT STATES HE IS DIABETIC BUT DOESNT CHECK HIS SUGAR HOW HE IS SUPPOSE TO. ADMISSION WORKUP BEING COMPLETED. PT STATES HE DOESNT REMEMBER HIS MEDICATIONS SO MED REC IS NOT DONE BUT HE STATES HE WILL HAVE HIS SON BRING IT UP. PT DENIES ANY CURRENT PAIN OR NEEDS. CL IN REACH. WILL CPOC.
--- NOTE | 2018-08-15 19:22 | NUR ---
PT LAYING IN BED WATCHING TV. RESPIRATIONS EVEN AND UNLABORED. PT DENIES ANY NEEDS OR PAIN AT THIS TIME. BED LOW CALL LIGHT WITHIN REACH. WILL CONTINUE TO MONITOR.
[2018-08-15 20:00] VITALS: BP 202/82
--- NOTE | 2018-08-15 22:40 | NUR ---
PT COMPLAING OF PAIN 01/31.PT REQUESTING PAIN MEDICATION AND BENADRYL. RENAL PAGED. BED LOW CALL LIGHT WITHIN REACH. WILL CONTINUE TO MONITOR.
--- NOTE | 2018-08-15 23:17 | NUR ---
PT RESTING COMFORTABLY. RESPIRATIONS EVEN AND SHALLOW. PT NPO AT MIDNIGHT FOR PROCEDURE. PT POSITION ADJUSTED. PT TUBE FEEDINGS STOPPED AT THIS TIME. SIDE RAILS UP X2. BED LOW CALL LIGHT WITHIN REACH. WILL CONTINUE TO MONITOR.
[2018-08-15 23:56] VITALS: BP 149/92; BMI 27.2
[2018-08-16] VITALS (7 sets, daily range): BP systolic 98–153; BP diastolic 33–92; Ht 182.9 cm; Wt 90.0 kg
--- NOTE | 2018-08-16 04:21 | NUR ---
RN NOTE: PATIENT IS ALERT AND ORIENTED. PATIENT GIVEN ZOFRAN FOR N/V. RESPIRATIONS ARE EVEN AND UNLABORED. CALL LIGHT WITHIN REACH. WILL CPOC.
--- NOTE | 2018-08-16 06:25 | NUR ---
PT VOMITING. LIEN RODRIGUES CALLED. ORDER FOR ZOFRAN. PT ALERT AND ORIENTED RESPIRATIONS EVEN AND UNLABORED. BED LOW CALL LIGHT WITHIN REACH. WILL CONTINUE TO MONITOR.
[2018-08-16 06:27] LABS: BASOPHILS 0.2 % (0-2); EOSINOPHILS 0.7 % (0-7); HEMATOCRIT 27.5 % (42.0-54.0); HEMOGLOBIN 9.2 g/dL (13.5-17.5); IMMATURE GRANULOCYTES 0.2 % (0-5); LYMPHOCYTES 12.7 % (15-50); MCH 30.8 pg (26.0-34.0); MCHC 33.5 g/dL (31.0-37.0); MEAN PLATELET VOLUME 9.5 fL (7.4-10.4); MONOCYTES 6.6 % (2-11); NEUTROPHILS 79.6 % (40-80); PLATELET COUNT 118 10x3/uL (130-400); RBC 2.99 10x6/uL (4.20-6.10); RDW 13.3 % (11.5-14.5); WBC 4.3 10x3/uL (4.8-10.8)
[2018-08-16 07:02] LABS: POTASSIUM - SERUM 5.6 mmol/L (3.5-5.1)
[2018-08-16 07:13] LABS: ANION GAP 25.2 mmol/L (8-16); CARBON DIOXIDE 21.4 mmol/L (21.0-32.0); PHOSPHOROUS 9.5 mg/dL (2.5-4.9)
[2018-08-16 07:15] LABS: CALCIUM 6.2 mg/dL (8.5-10.1)
--- NOTE | 2018-08-16 07:29 | NUR ---
AM ROUNDS COMPLETED. INTRODUCED MYSELF TO PT PRIMARY RN FOR TODAYS SHIFT. FOCUSED SHIFT ASSESSMENT COMPLETED. PT IS RESTING QUIETLY IN BED WITH EYES CLOSED RR NONLABORED. NO S/S OF DISTRESS OR ANY CURRENT NEEDS AT THIS TIME. CL IN REACH, BED IN LOWEST, SIDE RAILS X2. WILL CTM.
--- NOTE | 2018-08-16 11:12 | NUR ---
FSBS 190. PT DOESNT USUALLY TAKE INSULIN AND IS CONCERNED WITH DROPPING HIS LEVEL. WILL HOLD FOR NOW AND RECHECK FOR DINNER AND SEE HOW HE DOES. PT VOICED THANKS AND IS RESTING QUIETLY LYING ON HIS R.SIDE. NO CURRENT NEEDS. WILL CTM.
--- NOTE | 2018-08-16 12:26 | NUR ---
PT STATES HE IS NOT FEELING WELL. JUST C/O BOSWELL AND STOMACH ACHING. RECHECKED VITALS LAST BP WAS SLIGHTLY LOW. VSS. PT SITTING UP ON EDGE OF BED AND STATES HE WILL TRY TO EAT AND SEE IF IT HELPS. CL IN REACH, BED IN LOWEST, SIDE RAILS X2. WILL CTM.
--- NOTE | 2018-08-16 15:23 | NUR ---
DIALYSIS CALLED FOR PT. PT BEING BROUGHT DOWN VIA BED. NO CURRENT NEEDS. WILL CTM.
--- NOTE | 2018-08-16 17:23 | NUR ---
PT STILL IN DIALYSIS AND IS DOING WELL NO CURRENT NEEDS FROM ME PER DIALYSIS NURSE. WILL CPOC.
--- NOTE | 2018-08-16 17:44 | NUR ---
DID NOT COLLECT URINE SPECIMEN R/T PT NOT PRODUCING SAMPLE TODAY. PT IS RENAL AND STATES HE GOES SOME DAYS, SOME DAYS NOT. HE WILL PROVIDE WILL ABLE. SUPPLIES IN ROOM FOR COLLECTION.
--- NOTE | 2018-08-16 18:40 | NUR ---
PT BACK FROM DIALYSIS AND REQUESTING COUGH SYRUP HOWEVER NO COUGHING HAS BEEN HEARD. WILL LISTEN OUT FOR IT AND DISCUSS WITH ONCOMING SHIFT AND FIND OUT IF HE ACTUALLY NEEDS IT OR NOT. WILL ALSO OFFER THROAT SOOTHING DRINKS.
[2018-08-17] VITALS: BP 121/50
--- NOTE | 2018-08-17 01:30 | NUR ---
PT COMPLAINIG OF NOT BEING ABLE TO URINATE WITH THE URGE. BLADDER SCAN SHOWED 55ML OF URINE IN BLADDER. WILL CONTINUE TO MONITOR.
[2018-08-17 04:00] VITALS: BP 124/56
[2018-08-17 06:28] LABS: BASOPHILS 0.6 % (0-2); HEMATOCRIT 26.1 % (42.0-54.0); HEMOGLOBIN 8.6 g/dL (13.5-17.5); LYMPHOCYTES 16.2 % (15-50); MCH 30.8 pg (26.0-34.0); MCV 93.5 fL (80.0-100.0); MEAN PLATELET VOLUME 10.2 fL (7.4-10.4); MONOCYTES 6.7 % (2-11); NEUTROPHILS 74.5 % (40-80); PLATELET COUNT 124 10x3/uL (130-400); RBC 2.79 10x6/uL (4.20-6.10); RDW 13.1 % (11.5-14.5); WBC 3.6 10x3/uL (4.8-10.8)
[2018-08-17 06:56] LABS: ANION GAP 21.9 mmol/L (8-16); CARBON DIOXIDE 23.6 mmol/L (21.0-32.0); CREATININE - SERUM 8.6 mg/dL (0.6-1.3); PHOSPHOROUS 8.8 mg/dL (2.5-4.9); POTASSIUM - SERUM 5.5 mmol/L (3.5-5.1)
[2018-08-17 07:34] LABS: CALCIUM 6.1 mg/dL (8.5-10.1)
[2018-08-17 07:57] VITALS: BP 129/43
--- NOTE | 2018-08-17 09:55 | NUR ---
RESTS WITH EYES CLOSED. CALL LIGHT IN REACH. WILL MONITOR NEEDS.
[2018-08-17 15:31] VITALS: BP 149/53
--- NOTE | 2018-08-17 19:50 | NUR ---
RESUMING PT CARE. PT IS ALERT LAYING IN BED WATCHING TV WITH NO C/O VOICED AT THIS TIME. BED IN THE LOW POSITION WITH CALL LIGHT IN REACH. SIDE RAILS UP X 2. WILL CONTINUE TO MONITOR PT AND FOLLOW PLAN OF CARE.
[2018-08-17 20:00] VITALS: BP 124/43
--- NOTE | 2018-08-18 02:54 | NUR ---
LYING IN BED, CALL LIGHT IN REACH. WILL CONTINUE WITH PLAN OF CARE.
--- NOTE | 2018-08-18 04:36 | NUR ---
PT IS LAYING IN THE BED WITH EYES CLOSED RESTING COMFORTABLY. RESPIRATIONS EVEN AND UNLABORED. BED IN LOW POSITION WITH CALL LIGHT IN REACH. WILL CONTINUE TO MONITOR PT AND FOLLOW PLAN OF CARE.
[2018-08-18 05:09] LABS: ANION GAP 19.2 mmol/L (8-16); BASOPHILS 0.6 % (0-2); CARBON DIOXIDE 24.6 mmol/L (21.0-32.0); CREATININE - SERUM 7.2 mg/dL (0.6-1.3); EOSINOPHILS 2.8 % (0-7); HEMATOCRIT 26.1 % (42.0-54.0); HEMOGLOBIN 8.7 g/dL (13.5-17.5); LYMPHOCYTES 20.4 % (15-50); MCH 31.2 pg (26.0-34.0); MCHC 33.3 g/dL (31.0-37.0); MCV 93.5 fL (80.0-100.0); MEAN PLATELET VOLUME 10.8 fL (7.4-10.4); MONOCYTES 8.5 % (2-11); NEUTROPHILS 67.7 % (40-80); PHOSPHOROUS 7.4 mg/dL (2.5-4.9); PLATELET COUNT 131 10x3/uL (130-400); POTASSIUM - SERUM 4.8 mmol/L (3.5-5.1); RBC 2.79 10x6/uL (4.20-6.10); RDW 13.1 % (11.5-14.5); WBC 3.2 10x3/uL (4.8-10.8)
[2018-08-18 05:12] LABS: CALCIUM 6.7 mg/dL (8.5-10.1)
--- NOTE | 2018-08-18 07:30 | NUR ---
RECEIVED A/A/OX4. DENIES ANY NEEDS AT PRESENT TIME. CONTINUES IN DROPLET ISOLATION FOR POS FLU B. ASSESSMENT COMPLETED AND WILL CPOC. BED IN LOW POSITION, SIDERAILS UP X 2 AND CALL LIGHT IN REACH.L
[2018-08-18 09:12] VITALS: BP 140/76
--- NOTE | 2018-08-18 09:44 | NUR ---
RESTS IN ISOLATION ROOM. COMPOUND COATING MACHINE OFFBEARER AT BS. CALL LIGHT IN REACH.
--- NOTE | 2018-08-18 12:34 | NUR ---
Nutrition follow-up: Pt now in isolation for type B flu Diet: Renal ADA Labs reviewed; K, PO4 elevated Pt not compliant with diet; nursing also ordering inappropriate food items, ie: [place], gravy, extra biscuits, sausage. Wt: 200# Will advise nursing to pay more attention to labs before ordering extra food items. RDN following.
[2018-08-18 14:37] VITALS: BP 142/60
--- NOTE | 2018-08-18 19:44 | NUR ---
RESUMING PT CARE. PT LAYING IN BED WITH EYES CLOSED RESTING COMFORTABLY. RESPIRATIONS ARE EVEN AND UNLABORED. BED IN LOW POSITION WITH CALL LIGHT IN REACH. WILL CONTINUE TO MONITOR PT AND FOLLOW PLAN OF CARE.
[2018-08-18 20:31] VITALS: BP 144/51
[2018-08-18 23:50] VITALS: BP 130/52
--- NOTE | 2018-08-19 00:17 | NUR ---
PATIENT RESTING ON LEFT SIDE, RESP EVEN AND UNLABORED, NO S/SX OF DISCOMFORT OR PAIN AT THIS TIME.
[2018-08-19 03:50] VITALS: BP 138/56
[2018-08-19 05:12] LABS: BASOPHILS 0.2 % (0-2); EOSINOPHILS 2.7 % (0-7); HEMATOCRIT 26.6 % (42.0-54.0); HEMOGLOBIN 8.7 g/dL (13.5-17.5); IMMATURE GRANULOCYTES 0.2 % (0-5); LYMPHOCYTES 21.9 % (15-50); MCH 30.9 pg (26.0-34.0); MCHC 32.7 g/dL (31.0-37.0); MCV 94.3 fL (80.0-100.0); MEAN PLATELET VOLUME 10.3 fL (7.4-10.4); MONOCYTES 5.7 % (2-11); NEUTROPHILS 69.3 % (40-80); PLATELET COUNT 118 10x3/uL (130-400); RBC 2.82 10x6/uL (4.20-6.10); RDW 13.2 % (11.5-14.5)
[2018-08-19 05:15] LABS: WBC 4.1 10x3/uL (4.8-10.8)
[2018-08-19 05:51] LABS: ANION GAP 19.6 mmol/L (8-16); CREATININE - SERUM 9.4 mg/dL (0.6-1.3); PHOSPHOROUS 8.3 mg/dL (2.5-4.9); POTASSIUM - SERUM 4.6 mmol/L (3.5-5.1)
[2018-08-19 05:52] LABS: CALCIUM 6.3 mg/dL (8.5-10.1)
--- NOTE | 2018-08-19 07:55 | NUR ---
PATIENT IS SITTING UP ON THE EDGE OF THE BED, LIGHTS DIM. PATIENT DENIES ANY NEEDS AT THIS TIME.
--- NOTE | 2018-08-19 07:57 | NUR ---
RESTING QUIETLY NAD NOTED
[2018-08-19 10:50] VITALS: BP 158/75
--- NOTE | 2018-08-19 15:57 | NUR ---
NEED A URINE SAMPLE, HOWEVER THE PATIENT HAS NOT BEEN ABLE TO URINATE. HE HAS NOT BEEN EATTING OR DRINKING MUCH. HE REPORTS FEELING BAD, AND DESCRIBES THE DISCOMFORT "PAIN ALL OVER HIS BODY. ".
--- NOTE | 2018-08-19 17:37 | NUR ---
PATIENT IS HAVING DIALYSIS NOW, IN HIS ROOM BECAUSE HE IS ON ISOLATION WITH THE FLU.
--- NOTE | 2018-08-19 19:48 | NUR ---
RECEIVED REPORT, WILL ASSUME CARE OF PT, DENIES ANY NEEDS AT THIS TIME, DIALYSIS IS JUST FINISHING, CALL LIGHT IN REACH, WILL CONTINUE PLAN OF CARE
--- NOTE | 2018-08-19 21:29 | NUR ---
[id number] COVERAGE NEEDED, COMPLAINS OF PAIN/NAUSA-GAVE PHENERGAN 25MG AND TYLENOL 650MG ORDER, PROVIDE PT WITH A SNACK
[2018-08-19 21:32] VITALS: BP 143/67
[2018-08-19 22:52] LABS: UDS - AMPHET NEGATIVE QUAL (NEGATIVE); UDS - BARB NEGATIVE QUAL (NEGATIVE); UDS - BENZO POSITIVE QUAL (NEGATIVE); UDS - COCAINE NEGATIVE QUAL (NEGATIVE); UDS - OPIATE POSITIVE QUAL (NEGATIVE); UDS - PCP NEGATIVE QUAL (NEGATIVE); UDS - THC POSITIVE QUAL (NEGATIVE)
[2018-08-19 23:00] LABS: APPEARANCE CLOUDY (CLEAR); COLOR YELLOW (YELLOW); NITRITE NEGATIVE (NEGATIVE); PROTEIN 2+ mg/dL (NEGATIVE)
[2018-08-19 23:01] LABS: BACTERIA FEW /hpf (NONE SEEN); BILIRUBIN NEGATIVE (NEGATIVE); EPITHELIAL CELLS 0-5 /hpf (0-5); GLUCOSE 50 mg/dL (NEGATIVE); KETONE NEGATIVE (NEGATIVE); MUCUS >1+ /lpf (NONE SEEN); RED CELLS - URINE 0-5 /hpf (0-5); UROBILINOGEN NORMAL (NORMAL)
--- NOTE | 2018-08-19 23:52 | NUR ---
RESTING IN BED WITH NO DISTRESS. RESPS NONLABORED. CALL LIGHT IN REACH. MONITOR AND CPOC.
[2018-08-19 23:55] VITALS: BP 154/38
[2018-08-20 03:55] VITALS: BP 136/58
[2018-08-20 06:25] LABS: BASOPHILS 0 % (0-2); EOSINOPHILS 1.7 % (0-7); HEMATOCRIT 26.8 % (42.0-54.0); HEMOGLOBIN 8.8 g/dL (13.5-17.5); LYMPHOCYTES 17.9 % (15-50); MCH 30.9 pg (26.0-34.0); MCHC 32.8 g/dL (31.0-37.0); MEAN PLATELET VOLUME 10.3 fL (7.4-10.4); MONOCYTES 7.6 % (2-11); NEUTROPHILS 72.8 % (40-80); PLATELET COUNT 115 10x3/uL (130-400); RBC 2.85 10x6/uL (4.20-6.10); RDW 13.1 % (11.5-14.5); WBC 4.6 10x3/uL (4.8-10.8)
[2018-08-20 06:51] LABS: ANION GAP 18.6 mmol/L (8-16); CARBON DIOXIDE 24.6 mmol/L (21.0-32.0); CREATININE - SERUM 8.4 mg/dL (0.6-1.3); PHOSPHOROUS 6.9 mg/dL (2.5-4.9); POTASSIUM - SERUM 5.2 mmol/L (3.5-5.1)
[2018-08-20 06:54] LABS: CALCIUM 6.5 mg/dL (8.5-10.1)
--- NOTE | 2018-08-20 07:10 | NUR ---
REPORT RECIEVED FROM POULTRY BARN MANAGER. DROPLET PRECAUTIONS IN PLACE. PATIENT LAYING IN LEFT SIDE WITH EYES CLOSED AND BREATHING EVENLY. WILL CONTINUE WITH PLAN OF CARE. SR UP X 2 CALL LIGHT IN REACH AND BED IN LOW POSTION.
--- NOTE | 2018-08-20 09:30 | NUR ---
ASSESSMENT COMPLETED. PATIENT DENIES ANY PAIN OR NEEDS. VS GOOD. WILL CONTINUE TO MONITOR.
[2018-08-20 09:40] VITALS: BP 125/74
[2018-08-20 14:30] VITALS: BP 132/554
--- NOTE | 2018-08-20 15:39 | NUR ---
PATIENT AWAKE AND ALERT WATCHING TV. DENIES PAIN OR NEEDS.
[2018-08-20 17:53] VITALS: BP 131/58
--- NOTE | 2018-08-20 18:39 | NUR ---
PATIENT STILL UP TO BEDSIDE CHAIR. WATCHING TV. DENIOES ANY NEEDS OR PAIN. CALL LIGHT IN REACH . WILL CONTINUE TO MONITOR.
--- NOTE | 2018-08-20 19:30 | NUR ---
RECEIVED REPORT, WILL ASSUME CARE OF PT, DENIES ANY NEEDS AT THIS TIME, BED IS LOW, SRX2, CALL LIGHT INN REACH, WILL CONTINUE PLAN OF CARE
[2018-08-20 20:00] VITALS: BP 130/60
[2018-08-21 01:00] VITALS: BP 138/56
[2018-08-21 04:00] VITALS: BP 130/92
--- NOTE | 2018-08-21 05:20 | NUR ---
RESTING WITH NO DISTRESS. MONITOR AND CPOC.
--- NOTE | 2018-08-21 07:47 | NUR ---
REPORT RECEIVED. WILL CONTINUE WITH POC. PT CURRENTLY LYING SEMI FOWLERS. CALL LIGHT W/I REACH. PT CURRENTLY UNDERGOING RESP TRX. RR EVEN AND UNLABORED ON RA. NO PIV. PT IS AAO AND UP WITH ASSIST. PT DENIES ANY NEEDS AT THIS TIME. WILL CTM.
[2018-08-21 08:37] VITALS: BP 137/48
--- NOTE | 2018-08-21 11:26 | NUR ---
RESTING QUIETLY. WILL CONTINUE WITH POC
[2018-08-21 11:39] VITALS: BP 132/48
[2018-08-21 15:44] VITALS: BP 126/58
--- NOTE | 2018-08-21 19:30 | NUR ---
RECEIVED REPORT, WILL ASSUME CARE OF PT, DENIES ANY NEEDS AT THIS TIME, BED IS LOW, SRX2, CALL LIGHT IN REACH, WILL CONTINUE PLAN OF CARE
[2018-08-21 20:00] VITALS: BP 146/78
[2018-08-22 05:15] VITALS: BP 145/74
[2018-08-22 05:51] LABS: BASOPHILS 0.2 % (0-2); EOSINOPHILS 2.1 % (0-7); HEMOGLOBIN 8.7 g/dL (13.5-17.5); IMMATURE GRANULOCYTES 0.2 % (0-5); LYMPHOCYTES 21.6 % (15-50); MCH 31.1 pg (26.0-34.0); MCHC 33.5 g/dL (31.0-37.0); MCV 92.9 fL (80.0-100.0); MEAN PLATELET VOLUME 10.1 fL (7.4-10.4); MONOCYTES 4.5 % (2-11); NEUTROPHILS 71.4 % (40-80); PLATELET COUNT 102 10x3/uL (130-400); RDW 13.3 % (11.5-14.5); WBC 4.9 10x3/uL (4.8-10.8)
[2018-08-22 06:06] LABS: ANION GAP 21.9 mmol/L (8-16); CARBON DIOXIDE 23.2 mmol/L (21.0-32.0); POTASSIUM - SERUM 5.1 mmol/L (3.5-5.1)
[2018-08-22 06:17] LABS: CREATININE - SERUM 11.8 mg/dL (0.6-1.3); PHOSPHOROUS 8.9 mg/dL (2.5-4.9)
[2018-08-22 06:18] LABS: CALCIUM 6.1 mg/dL (8.5-10.1)
--- NOTE | 2018-08-22 07:45 | NUR ---
PT RESTING IN BED, EYES OPEN. NO C/O PAIN. NO S/S OF ACUTE DISTRESS NOTED. PT ALERT AND ORIENTED. ON DROPLET PRECAUTIONS FOR FLU B. PT LEFT ARM RESERVE. DIALYSIS . FISTULA TO LEFT ARM. DIALYSIS DONE IN ROOM DUE TO ISOLATION PRECAUTIONS. PT DENIES ANYTHING FURTHER AT THIS TIME. CALL LIGHT IN REACH. WILL CONTINUE TO MONITOR.
[2018-08-22 08:02] VITALS: BP 157/44
--- NOTE | 2018-08-22 10:21 | NUR ---
RESTS IN ILSOLATION ROOM. RESTS IN BED WITH EYES CLOSED. CALL LIGHT IN REACH. WILL CONT. PLAN OF CARE.
[2018-08-22 12:20] VITALS: BP 142/48
--- NOTE | 2018-08-22 12:25 | NUR ---
Nutrition follow-up: Pt in isolation for Flu B Diet: Renal ADA PO intake 100% of meals Labs reviewed; PO4 elevated; no special food requests have been made Wt: 198# RDN following.
[2018-08-22 15:18] VITALS: BP 184/51
--- NOTE | 2018-08-22 17:57 | NUR ---
PT RESTING IN BED, EYES OPEN. NO C/O PAIN. NO S/S OF ACUTE DISTRESS NOTED. PT IN ISOLATION FOR FLU B, DROPLET. PT DENIES ANYTHING FURTHER AT THIS TIME. CALL LIGHT IN REACH. WILL CONTINUE TO MONITOR.
--- NOTE | 2018-08-22 19:35 | NUR ---
PT SITTING UP IN BED WATCHING TV ALERT AND ORIENTED. PT DENIES ANY NEEDS AT THIS TIME. BED LOW CALL LIGHT WITHIN REACH. WILL CONTINUE TO MONITOR.
[2018-08-22 20:00] VITALS: BP 152/39
[2018-08-23] VITALS: BP 134/35
--- NOTE | 2018-08-23 02:23 | NUR ---
PLACE TELEMETRY ON PT. PT HR-50 BP- 134/35. PT ASYMPTOMATIC.PT ALERT AND ORIENTED. DENIES PAIN OR NEEDS. BED LOW CALL LIGHT WITHIN REACH. WILL CONTINUE TO MONITOR.
[2018-08-23 04:00] VITALS: BP 146/33
[2018-08-23 05:39] LABS: BASOPHILS 0.2 % (0-2); EOSINOPHILS 1.7 % (0-7); HEMATOCRIT 27.3 % (42.0-54.0); HEMOGLOBIN 9.2 g/dL (13.5-17.5); IMMATURE GRANULOCYTES 0.4 % (0-5); LYMPHOCYTES 19.4 % (15-50); MCH 31.5 pg (26.0-34.0); MCHC 33.7 g/dL (31.0-37.0); MCV 93.5 fL (80.0-100.0); MEAN PLATELET VOLUME 10.8 fL (7.4-10.4); NEUTROPHILS 74.3 % (40-80); PLATELET COUNT 119 10x3/uL (130-400); RBC 2.92 10x6/uL (4.20-6.10); RDW 13.3 % (11.5-14.5); WBC 5.3 10x3/uL (4.8-10.8)
[2018-08-23 06:16] LABS: ANION GAP 21.1 mmol/L (8-16); CREATININE - SERUM 9.5 mg/dL (0.6-1.3); PHOSPHOROUS 7.6 mg/dL (2.5-4.9); POTASSIUM - SERUM 5.1 mmol/L (3.5-5.1)
[2018-08-23 06:45] LABS: CALCIUM 6.6 mg/dL (8.5-10.1)
--- NOTE | 2018-08-23 08:00 | NUR ---
AM ROUNDS COMPLETED. VSS, AAOX3, RR UNLABORED, NO S/S OF DISTRESS. PT IN DROPLET ISOLATION. PT HAVE OCCASIONAL COUGH THIS MORNING. PT STATES IT STARTED LAST NIGHT.PT ALSO STATES HE DID NOT GET MUCH SLEEP LAST NIGNT. AM MEDS GIVEN. WILL CPOC. CL IN REACH, BED IN LOW. WILL CTM.
[2018-08-23 08:58] VITALS: BP 158/37
[2018-08-23 11:55] VITALS: BP 146/49
[2018-08-23 15:55] VITALS: BP 157/49
--- NOTE | 2018-08-23 18:00 | NUR ---
PT SON STATES NURSE SHOULD NOT LET MARYURI SARAH INTO PT ROOM. PT SON STATES SHE IS HIS EX GIRLFRIED AND SHE IS DANGEROUS.
--- NOTE | 2018-08-23 19:15 | NUR ---
PT LAYING IN BED ALERT AND ORIENTED. RESPIRATIONS EVEN AND UNLABORED. PT DENIES ANY NEEDS OR PAIN AT THIS TIME. BED LOW CALL LIGHT WITHIN REACH. WILL CONTINUE TO MONITOR.
[2018-08-23 20:00] VITALS: BP 165/43
[2018-08-24] VITALS: BP 162/47
--- NOTE | 2018-08-24 01:37 | NUR ---
PT RESTING COMFORTABLY. NO COMPLAINTS AT THIS TIME. WILL CONTINUE TO MONITOR.
[2018-08-24 04:00] VITALS: BP 114/60
[2018-08-24 05:54] LABS: BASOPHILS 0.2 % (0-2); EOSINOPHILS 1.9 % (0-7); HEMATOCRIT 25.9 % (42.0-54.0); HEMOGLOBIN 8.7 g/dL (13.5-17.5); IMMATURE GRANULOCYTES 0.2 % (0-5); LYMPHOCYTES 24.7 % (15-50); MCH 31.3 pg (26.0-34.0); MCHC 33.6 g/dL (31.0-37.0); MCV 93.2 fL (80.0-100.0); MEAN PLATELET VOLUME 10.1 fL (7.4-10.4); MONOCYTES 5.1 % (2-11); NEUTROPHILS 67.9 % (40-80); PLATELET COUNT 111 10x3/uL (130-400); RBC 2.78 10x6/uL (4.20-6.10); RDW 13.4 % (11.5-14.5); WBC 4.3 10x3/uL (4.8-10.8)
[2018-08-24 06:10] LABS: ANION GAP 21.4 mmol/L (8-16); CREATININE - SERUM 11.2 mg/dL (0.6-1.3); PHOSPHOROUS 7.8 mg/dL (2.5-4.9); POTASSIUM - SERUM 5.4 mmol/L (3.5-5.1)
[2018-08-24 08:02] VITALS: BP 162/50
--- NOTE | 2018-08-24 09:00 | NUR ---
AM ROUNDS COMPLETED. VSS, AAOX3, UP IN BED. RR UNLABORED, NO S/S OF DISTRESS. AM MEDS GIVEN. PT STILL ON DROPLET ISOLATION. PT DENIES ANY FURTHER NEEDS AT THIS TIME. WILL CPOC. CL IN REACH. BED IN LOW.
[2018-08-24 11:25] VITALS: BP 147/70
--- NOTE | 2018-08-24 11:53 | NUR ---
PT CURRENTLY RECIEVING DIALYSIS IN HIS ROOM. DENIES ANY FURTHER NEEDS AT THIS TIME. WILL CTM.
--- NOTE | 2018-08-24 15:00 | NUR ---
PT DIALYSIS COMPLETED. CAR LOT ATTENDANT STATES PUT OUT 4L. PT CURRENTLY RESTING. VVS, NO SS OF DISTRESS. PT REQUESTED FOR CRACKERS. CRACKERS GIVEN. PT DENIES ANY FURTHER NEEDS AT THIS TIME. WILL CPOC.
[2018-08-24 15:32] VITALS: BP 173/77
--- NOTE | 2018-08-24 15:58 | MORECARE ---
CASE MANAGEMENT DISCHARGE SUMMARY PATIENT: RASHIDA OVIEDO UNIT: [id number] ADM DATE: 08/16/18 AGE: 63 : 55 SEX: M ROOM/BED: D.2113 AUTHOR: KAYLA MOSER PHYSICIAN: REFERRING PHYSICIAN: LARRY LA MD DATE OF SERVICE: 08/24/18 Discharge Plan Patient Name: RASHIDA OVIEDO [facility] [facility] 1955 Planned Disposition: Home Anticipated Discharge Date: 08/25/18 Discharge Date: Expected LOS: 9 Initial Reviewer: [email or web address] Initial Review Date: 08/24/2018 Generated: 08/24/18 4:58 pm DCPIA - Discharge Planning Initial Assessment Updated by [email or web address]: Arnulfo Gore on 08/24/18 3:58 pm * Is the patient Alert and Oriented? Yes * How many steps to enter\exit or inside your home? * PCP [place] * Pharmacy [facility] * Preadmission Environment Home with Family * ADLs Independent * Equipment None * Other Equipment NO MEDICAL EQUIPMENT PROVIDER PREFERENCE * List name and contact numbers for known caregivers / representatives who currently or will assist patient after discharge: CLAY OVIEDO, SON, Patient Name: RASHIDA OVIEDO Page [id number] at 1558 All edits/amendments must be made on the electronic document DICTATION DATE: 08/24/181557 ELECTRONIC MAINTENANCE SUPERVISOR: RHONDA 08/24/18 1558 RPT#: [id number] DC DATE: STATUS: ADM IN [facility] [address] [place] [address] END OF REPORT
--- NOTE | 2018-08-24 16:06 | MORECARE ---
CASE MANAGEMENT DISCHARGE SUMMARY PATIENT: RASHIDA OVIEDO UNIT: [id number] ADM DATE: 08/16/18 AGE: 63 : 55 SEX: M ROOM/BED: D.2113 AUTHOR: EHSAN,DOC PHYSICIAN: REFERRING PHYSICIAN: LARRY RILEY MD DATE OF SERVICE: 08/24/18 Discharge Plan Patient Name: RASHIDA OVIEDO Facility: [facility]:[place] : 1955 Planned Disposition: Home Anticipated Discharge Date: 08/25/18 Discharge Date: Expected LOS: 9 Initial Reviewer: [email or web address] Initial Review Date: 08/24/2018 Generated: 08/24/18 5:06 pm Comments DCP- Discharge Planning Updated by [email or web address]: Arnulfo Gore on 08/24/18 3:[address] Patient Name: RASHIDA OVIEDO Admission Status: ER Accout number: [id number] Admission Date: 08-16-2018 : 1955 Admission Diagnosis:SHORTNESS OF BREATH Attending: Larry Riley Current LOS: 8 Anticipated DC Date: 08-25-2018 Planned Disposition: Home Primary Insurance: MEDICAID [place] PENDING Discharge Planning Comments: CM MET WITH PT IN ROOM TO DISCUSS DISCHARGE PLANNING AND NEEDS. PT REPORTS LIVING AT HOME INDEPENDENTLY; PT'S ADULT SON LIVES WITH PT IN HOME. PT HAS NO MEDICAL EQUIPMENT AND NO OUTSIDE SERVICES ASSISTING IN THE HOME. PT HAS DIALYSIS OUTPATIENT, TTS, 1015AM AT [facility], PT'S SON DRIVES PT TO AND FROM CLINIC. CM DISCUSSED AVAILABILITY OF HOME HEALTH, REHAB SERVICES AND MEDICAL EQUIPMENT. PT DENIES DISCHARGE NEEDS, REPORTS HIS SON WILL PICK HIM UP FOR DISCHARGE HOME. PT PLANS TO DISCHARGE HOME WITH SON, DENIES DISCHARGE NEEDS. CM TO FOLLOW AND ASSIST IF NEEDED. Compensation Adjuster: Arnulfo Gore DCPIA - Discharge Planning Initial Assessment Updated by [email or web address]: Arnulfo Gore on 08/24/18 3:58 pm * Is the patient Alert and Oriented? Yes * How many steps to enter\exit or inside your home? * [facility]CP [facility], [place], [place] * Pharmacy [facility] * Preadmission Environment Home with Family * ADLs Independent * Equipment None * Other Equipment NO MEDICAL EQUIPMENT PROVIDER PREFERENCE * List name and contact numbers for known caregivers / representatives who currently or will assist patient after discharge: CLAY OVIEDO, CHINMAY, * Verbal permission to speak to the caregivers and representatives has been obtained from the patient. N/A * Community resources currently utilized Other * Please name any agencies selected above. OUTPATIENT DIALYSIS, [facility], TTS, 1015AM, SON DRIVES * Additional services required to return to the preadmission environment? No * Can the patient safely return to the preadmission environment? Yes * Has this patient been hospitalized within the prior 30 days at any hospital? No Last DP export: 08/24/18 2:58 p Patient Name: RASHIDA OVIEDO Page 78455 at 1606 All edits/amendments must be made on the electronic document DICTATION DATE: 08/24/181604 LIBRARIAN: RHONDA 08/24/181604 RPT#: [id number] DC DATE: STATUS: ADM IN [facility] [address] [place] [address] END OF REPORT
--- NOTE | 2018-08-24 19:15 | NUR ---
Received patient in bed resting, remains on Contact and Droplet Isolation for the Flu and MRSA, no voiced concerns at this time. Drsg C/D/I over left upper arm fistula.
[2018-08-24 20:00] VITALS: BP 167/46
--- NOTE | 2018-08-24 20:36 | NUR ---
Given Tylenol on request for complaints of back and hip pain.
--- NOTE | 2018-08-24 21:11 | NUR ---
Given Phenergan for complaints of nausea.
--- NOTE | 2018-08-24 22:48 | NUR ---
No signs of distress, previous PRNs effective.
[2018-08-25] VITALS: BP 169/55
--- NOTE | 2018-08-25 00:42 | NUR ---
Eyes closed, resting in bed, no signs of distress, respirations unlabored, deemed to be sleeping.
[2018-08-25 04:00] VITALS: BP 166/50
[2018-08-25 05:18] LABS: BASOPHILS 0.2 % (0-2); EOSINOPHILS 1.5 % (0-7); HEMATOCRIT 28.7 % (42.0-54.0); HEMOGLOBIN 9.5 g/dL (13.5-17.5); LYMPHOCYTES 22.9 % (15-50); MCH 30.7 pg (26.0-34.0); MCHC 33.1 g/dL (31.0-37.0); MCV 92.9 fL (80.0-100.0); MEAN PLATELET VOLUME 9.9 fL (7.4-10.4); MONOCYTES 5.5 % (2-11); NEUTROPHILS 69.9 % (40-80); PLATELET COUNT 108 10x3/uL (130-400); RBC 3.09 10x6/uL (4.20-6.10); RDW 13.4 % (11.5-14.5); WBC 5.3 10x3/uL (4.8-10.8)
[2018-08-25 05:34] LABS: CREATININE - SERUM 8.5 mg/dL (0.6-1.3); PHOSPHOROUS 6.3 mg/dL (2.5-4.9)
[2018-08-25 05:44] LABS: ANION GAP 15.8 mmol/L (8-16); CARBON DIOXIDE 29.2 mmol/L (21.0-32.0)
[2018-08-25 05:45] LABS: CALCIUM 6.8 mg/dL (8.5-10.1)
--- NOTE | 2018-08-25 06:15 | NUR ---
Lab had called with low Calcium = 6.8 Added Albumin level to this morning's labs and called lab to have test run. This is for correction formula for [employer].
--- NOTE | 2018-08-25 06:50 | NUR ---
Albumin level has resulted = 3.4 Will pass on in report to oncoming staff.
--- NOTE | 2018-08-25 08:00 | NUR ---
AM ROUNDS COMPLETED. VSS, AAO X3. RR UNLABORED. NO S/S OF DISTRESS. AM MEDS GIVEN. PT AWAITING DISCHARGE. WILL CPOC.
[2018-08-25 09:02] VITALS: BP 188/65
[2018-08-25] MEDS ORDERED: ZOLOFT50 MG PO (11:19)
--- NOTE | 2018-08-25 11:53 | NUR ---
PROVIDED DISCHARGE TEACHING TO PT. PT VOICED UNDERSTANDING. PT HAVE NO PIV. ALL PT BELONGINGS SENT HOME WITH PT. PT REFUSED A WHEELCHAIR, STATES HE WILL WALK DOWN HIMSELF. PT DC'D HOME.
--- NOTE | 2018-08-28 09:29 | MORECARE ---
CASE MANAGEMENT DISCHARGE SUMMARY PATIENT: RASHIDA OVIEDO UNIT: [id number] ADM DATE: 08/16/18 AGE: 63 : 55 SEX: M ROOM/BED: D.2113 AUTHOR: EHSAN,DOC PHYSICIAN: REFERRING PHYSICIAN: LARRY RILEY MD DATE OF SERVICE: 08/28/18 Discharge Plan Patient Name: RASHIDA OVIEDO Facility: [facility]:[place] : 1955 Planned Disposition: Home Anticipated Discharge Date: 08/25/18 Discharge Date: 08/25/2018 Expected LOS: 9 Initial Reviewer: [email or web address] Initial Review Date: 08/24/2018 Generated: 08/28/18 10:28 am DCP- Discharge Planning Updated by [email or web address]: Arnulfo Gore on 08/24/18 3:[address] Patient Name: RASHIDA OVIEDO Admission Status: ER Accout number: [id number] Admission Date: 08-16-2018 : 1955 Admission Diagnosis:SHORTNESS OF BREATH Attending: Larry Riley Current LOS: 8 Anticipated DC Date: 08-25-2018 Planned Disposition: Home Primary Insurance: MEDICAID [place] PENDING Discharge Planning Comments: CM MET WITH PT IN ROOM TO DISCUSS DISCHARGE PLANNING AND NEEDS. PT REPORTS LIVING AT HOME INDEPENDENTLY; PT'S ADULT SON LIVES WITH PT IN HOME. PT HAS NO MEDICAL EQUIPMENT AND NO OUTSIDE SERVICES ASSISTING IN THE HOME. PT HAS DIALYSIS OUTPATIENT, TTS, 1015AM AT [facility], PT'S SON DRIVES PT TO AND FROM CLINIC. CM DISCUSSED AVAILABILITY OF HOME HEALTH, REHAB SERVICES AND MEDICAL EQUIPMENT. PT DENIES DISCHARGE NEEDS, REPORTS HIS SON WILL PICK HIM UP FOR DISCHARGE HOME. PT PLANS TO DISCHARGE HOME WITH SON, DENIES DISCHARGE NEEDS. CM TO FOLLOW AND ASSIST IF NEEDED. Outreach Consultant: Arnulfo Gore DCPIA - Discharge Planning Initial Assessment Updated by [email or web address]: Arnulfo Gore on 08/24/18 3:58 pm * Is the patient Alert and Oriented? Yes * How many steps to enter\exit or inside your home? * [facility]CP [facility], [place], [place] * Pharmacy [facility] * Preadmission Environment Home with Family * ADLs Independent * Equipment None * Other Equipment NO MEDICAL EQUIPMENT PROVIDER PREFERENCE * List name and contact numbers for known caregivers / representatives who currently or will assist patient after discharge: CLAY OVIEDO, CHINMAY, * Verbal permission to speak to the caregivers and representatives has been obtained from the patient. N/A * Community resources currently utilized Other * Please name any agencies selected above. OUTPATIENT DIALYSIS, [facility], TTS, 1015AM, SON DRIVES * Additional services required to return to the preadmission environment? No * Can the patient safely return to the preadmission environment? Yes * Has this patient been hospitalized within the prior 30 days at any hospital? No Last DP export: 08/24/18 3:06 p Patient Name: RASHIDA OVIEDO Page 48455 at 0929 All edits/amendments must be made on the electronic document DICTATION DATE: 08/28/18927 LOCKSTITCH CUP SETTER: RHONDA 08/28/18927 RPT#: [id number] DC DATE:08/25/18 STATUS: DIS IN [facility] [address] [place] [address] END OF REPORT
--- NOTE | 2018-08-28 09:36 | MORECARE ---
CASE MANAGEMENT DISCHARGE SUMMARY PATIENT: RASHIDA OVIEDO UNIT: [id number] ADM DATE: 08/16/18 AGE: 63 : 55 SEX: M ROOM/BED: D.2113 AUTHOR: EHSAN,DOC PHYSICIAN: REFERRING PHYSICIAN: LARRY RILEY MD DATE OF SERVICE: 08/28/18 Discharge Plan Patient Name: RASHIDA OVIEDO Facility: [facility]:[place] : 1955 Planned Disposition: Home Anticipated Discharge Date: 08/25/18 Discharge Date: 08/25/2018 Expected LOS: 9 Initial Reviewer: [email or web address] Initial Review Date: 08/24/2018 Generated: 08/28/18 10:35 am DCP- Discharge Planning Updated by [email or web address]: Arnulfo Gore on 08/24/18 3:[address] Patient Name: RASHIDA OVIEDO Admission Status: ER Accout number: [id number] Admission Date: 08-16-2018 : 1955 Admission Diagnosis:SHORTNESS OF BREATH Attending: Larry Riley Current LOS: 8 Anticipated DC Date: 08-25-2018 Planned Disposition: Home Primary Insurance: MEDICAID [place] PENDING Discharge Planning Comments: CM MET WITH PT IN ROOM TO DISCUSS DISCHARGE PLANNING AND NEEDS. PT REPORTS LIVING AT HOME INDEPENDENTLY; PT'S ADULT SON LIVES WITH PT IN HOME. PT HAS NO MEDICAL EQUIPMENT AND NO OUTSIDE SERVICES ASSISTING IN THE HOME. PT HAS DIALYSIS OUTPATIENT, TTS, 1015AM AT [facility], PT'S SON DRIVES PT TO AND FROM CLINIC. CM DISCUSSED AVAILABILITY OF HOME HEALTH, REHAB SERVICES AND MEDICAL EQUIPMENT. PT DENIES DISCHARGE NEEDS, REPORTS HIS SON WILL PICK HIM UP FOR DISCHARGE HOME. PT PLANS TO DISCHARGE HOME WITH SON, DENIES DISCHARGE NEEDS. CM TO FOLLOW AND ASSIST IF NEEDED. Camouflage Specialist: Arnulfo Gore DCPIA - Discharge Planning Initial Assessment Updated by [id number]: Arnulfo Gore on 08/24/18 3:58 pm * Is the patient Alert and Oriented? Yes * How many steps to enter\exit or inside your home? * PCP [facility], [place], [place] * Pharmacy [facility] * Preadmission Environment Home with Family * ADLs Independent * Equipment None * Other Equipment NO MEDICAL EQUIPMENT PROVIDER PREFERENCE * List name and contact numbers for known caregivers / representatives who currently or will assist patient after discharge: CLAY OVIEDO, CHINMAY, * Verbal permission to speak to the caregivers and representatives has been obtained from the patient. N/A * Community resources currently utilized Other * Please name any agencies selected above. OUTPATIENT DIALYSIS, [facility], TTS, 1015AM, SON DRIVES * Additional services required to return to the preadmission environment? No * Can the patient safely return to the preadmission environment? Yes * Has this patient been hospitalized within the prior 30 days at any hospital? No Last DP export: 08/24/18 3:06 p Patient Name: RASHIDA OVIEDO Page 00384 at 0936 All edits/amendments must be made on the electronic document DICTATION DATE: 08/28/18934 PERSONAL LINES INSURANCE ADVISOR: RHONAD 08/28/18934 RPT#: [id number] DC DATE:08/25/18 STATUS: DIS IN [facility] [address] [place] [address] END OF REPORT
== END 2018-08-25 12:01 | disposition home or self-care (01) | DRG 640 ==
LOC: D.ER 08:47 → OBSVTIME 09:09 → D.EDHOLD 09:09 → D.M2 09:09
PROVIDERS: Family Medicine; ADMIT Internal Medicine Nephrology
PROC: 5A1D70Z Performance of Urinary Filtration, Intermittent, Less than 6 Hours Per Day (ICD-10-PCS; principal; 2018-08-15)
DX: E87.5 Hyperkalemia (principal); N18.6 End stage renal disease; I12.0 Hypertensive chronic kidney disease with stage 5 chronic kidney disease or end stage renal disease; D61.818 Other pancytopenia; R18.8 Other ascites; E11.22 Type 2 diabetes mellitus with diabetic chronic kidney disease; Z99.2 Dependence on renal dialysis; Z91.15 Patient's noncompliance with renal dialysis; J44.9 Chronic obstructive pulmonary disease, unspecified; F32.9 Major depressive disorder, single episode, unspecified; B19.20 Unspecified viral hepatitis C without hepatic coma; R04.0 Epistaxis; J10.1 Influenza due to other identified influenza virus with other respiratory manifestations; D63.1 Anemia in chronic kidney disease

== ENCOUNTER 2018-09-06 14:56 | Emergency (ER) | payer MEDICAID ==
[~2018-09-06] VITALS: Ht 182.9 cm; Wt 90.9 kg
[2018-09-06 15:02] VITALS: Ht 182.9 cm; Wt 90.9 kg
[2018-09-06 15:33] LABS: BASOPHILS 0.1 % (0-2); EOSINOPHILS 0.7 % (0-7); HEMATOCRIT 30.7 % (42.0-54.0); HEMOGLOBIN 10.3 g/dL (13.5-17.5); IMMATURE GRANULOCYTES 0.3 % (0-5); LYMPHOCYTES 10.4 % (15-50); MCH 31.7 pg (26.0-34.0); MCHC 33.6 g/dL (31.0-37.0); MCV 94.5 fL (80.0-100.0); MEAN PLATELET VOLUME 9.7 fL (7.4-10.4); NEUTROPHILS 83.5 % (40-80); RBC 3.25 10x6/uL (4.20-6.10); RDW 15.4 % (11.5-14.5); WBC 7.2 10x3/uL (4.8-10.8)
[2018-09-06 15:35] LABS: PLATELET COUNT 135 10x3/uL (130-400)
[2018-09-06 15:48] LABS: ALBUMIN 3.2 g/dL (3.4-5.0); ANION GAP 21.7 mmol/L (8-16); BILIRUBIN - TOTAL 0.52 mg/dL (0.2-1.3); CARBON DIOXIDE 19.9 mmol/L (21.0-32.0); CREATININE - SERUM 10.1 mg/dL (0.6-1.3); POTASSIUM - SERUM 4.6 mmol/L (3.5-5.1); PROTEIN - SERUM 7.3 g/dL (6.4-8.2)
[2018-09-06 15:52] LABS: CALCIUM 6.9 mg/dL (8.5-10.1)
[2018-09-06 23:35] VITALS: BP 208/92
== END 2018-09-06 23:39 | disposition other institution (70) ==
LOC: D.ER 14:56
PROVIDERS: Family Medicine
DX: J09.X2 Influenza due to identified novel influenza A virus with other respiratory manifestations (principal); I12.0 Hypertensive chronic kidney disease with stage 5 chronic kidney disease or end stage renal disease; N18.6 End stage renal disease; B19.20 Unspecified viral hepatitis C without hepatic coma; Z85.828 Personal history of other malignant neoplasm of skin; H57.89 Other specified disorders of eye and adnexa

== ENCOUNTER 2018-09-18 19:25 | Outpatient (CLI) | payer MEDICAID ==
[~2018-09-18] VITALS: Ht 182.9 cm; Wt 95.7 kg
--- NOTE | 2018-09-18 20:48 | NUR ---
ARRIVED TO FLOOR AT 1999 DIRECT ADMIT FROM HOME. ORDERS FOR 2 UNITS OF PRBC TOMORROW. CALLED Zena [facility]IAMSON APN FOR ORDERS. NEW ORDERS FOR 1 UNIT TO BE GIVEN TONIGHT AND THE OTHER UNIT TO BE TRANSFUSED TOMORROW IN DIALYSIS TOMORROW. LABS ALSO ORDERED. PT AWARE OF NEW ORDERS. DENIES ANY NEEDS.
[2018-09-18 23:04] VITALS: BP 155/76; BMI 28.6
[2018-09-19] VITALS: BP 157/94
[2018-09-19 04:00] VITALS: BP 164/85
--- NOTE | 2018-09-19 04:51 | NUR ---
UNABLE TO START IV WITH SEVERAL NURSES ATTEMPTING, INCLUDING ICU CHARGE. WILL ASK IF DIALYSIS CAN GIVE BLOOD TODAY.
[2018-09-19 05:25] LABS: BASOPHILS 0.2 % (0-2); EOSINOPHILS 1.7 % (0-7); HEMATOCRIT 21.8 % (42.0-54.0); IMMATURE GRANULOCYTES 0.2 % (0-5); MCH 32.4 pg (26.0-34.0); MCHC 32.6 g/dL (31.0-37.0); MCV 99.5 fL (80.0-100.0); MEAN PLATELET VOLUME 9.9 fL (7.4-10.4); MONOCYTES 6.2 % (2-11); NEUTROPHILS 75.7 % (40-80); PLATELET COUNT 124 10x3/uL (130-400); RBC 2.19 10x6/uL (4.20-6.10); RDW 15.2 % (11.5-14.5); WBC 5.2 10x3/uL (4.8-10.8)
[2018-09-19 05:38] LABS: HEMOGLOBIN 7.1 g/dL (13.5-17.5)
[2018-09-19 06:02] LABS: ANION GAP 18.8 mmol/L (8-16); CREATININE - SERUM 8.8 mg/dL (0.6-1.3); POTASSIUM - SERUM 5.8 mmol/L (3.5-5.1)
[2018-09-19 06:18] LABS: CALCIUM 6.1 mg/dL (8.5-10.1)
--- NOTE | 2018-09-19 08:33 | NUR ---
RESUMING PT CARE, PT SITTING UP IN BED ALERT AND ORIENTED, FAMILY IS AT BEDSIDE. WILL HAVE DIALYSIS TODAY AND GET 2 UNITS OF PRBC'S THERE. CALL LIGHT IN REACH, WILL CONTINUE TO MONITOR AND FOLLOW PLAN OF CARE.
[2018-09-19 09:06] VITALS: BP 186/107
--- NOTE | 2018-09-19 12:47 | NUR ---
REVIEWED AND AGREE WITH ASSESMENT.
[2018-09-19 13:22] VITALS: Ht 182.9 cm; Wt 95.7 kg
--- NOTE | 2018-09-19 16:30 | NUR ---
PT IS BACK FROM DIALYSIS, ALERT AND ORIENTED. DENIES NEEDS AT THIS TIME. WILL CONTINUE TO MONITOR, CALL LIGHT IS IN REACH. FAMILY AT BEDSIDE.
[2018-09-19 16:59] VITALS: BP 164/77
--- NOTE | 2018-09-19 19:14 | NUR ---
PT IN BED SON AT BEDSIDE. PT DENIES NEEDS AT THIS TIME.
[2018-09-19 20:00] VITALS: BP 151/74
--- NOTE | 2018-09-19 21:30 | NUR ---
RESUMING PATIENT CARE. PATIENT IS ALERT AND ORIENTED, RESTING COMFORTABLY IN BED. RESPIRATIONS ARE EVEN AND UNLABORED. NO S/S DISTRESS. NO S/S C/O PAIN. CALL LIGHT WITHIN REACH. WILL CPOC.
[2018-09-20 04:00] VITALS: BP 165/94
[2018-09-20 06:31] LABS: BASOPHILS 0.2 % (0-2); EOSINOPHILS 1.7 % (0-7); IMMATURE GRANULOCYTES 0.2 % (0-5); LYMPHOCYTES 20.2 % (15-50); MCHC 32.5 g/dL (31.0-37.0); MONOCYTES 6.9 % (2-11); NEUTROPHILS 70.8 % (40-80); PLATELET COUNT 127 10x3/uL (130-400); RDW 16.7 % (11.5-14.5); WBC 4.7 10x3/uL (4.8-10.8)
[2018-09-20 06:40] LABS: ANION GAP 16.7 mmol/L (8-16); CARBON DIOXIDE 25.4 mmol/L (21.0-32.0); CREATININE - SERUM 7.4 mg/dL (0.6-1.3); POTASSIUM - SERUM 5.1 mmol/L (3.5-5.1)
[2018-09-20 06:43] LABS: HEMATOCRIT 26.8 % (42.0-54.0); HEMOGLOBIN 8.7 g/dL (13.5-17.5); MCV 95.4 fL (80.0-100.0); RBC 2.81 10x6/uL (4.20-6.10)
[2018-09-20 07:07] LABS: CALCIUM 6.8 mg/dL (8.5-10.1)
--- NOTE | 2018-09-20 07:30 | NUR ---
RECEIVED A/A/OX4. DENIES ANY PAIN OR DISCOMFORT AND NO REQUESTS VOICED. ASSESSMENT COMPLETED. BED IN LOWEST POSITION WITH WHEELS LOCKED, SIDERAILS UP X 2 AND CALL LIGHT IN REACH. WILL CONTINUE POC
[2018-09-20 08:57] VITALS: BP 157/69
--- NOTE | 2018-09-20 13:08 | NUR ---
SPOKE WITH PT AND HE REPORTS HE DOES NOT WANT A REFERRAL TO THE [facility]AC[facility] QUITLINE.
--- NOTE | 2018-09-20 13:48 | NUR ---
DISCHARGE INSTRUCTION REVIEWED WITH PT AND HAS NO QUESTIONS. VERBALIZES UNDERSTANDING. HAS NO IV ACCESS TO BE DC'D. LEFT FLOOR VIA W/C WITH PERSONAL BELONGINGS AND LEFT FACILITY VIA PRIVATE VEHICLE WITH HIS SON.
--- NOTE | 2018-09-20 14:33 | NUR ---
I have reviewed this patient and I concur with the Shift Assessment completed by the Licensed Practical Nurse today this shift.
== END 2018-09-20 13:30 ==
LOC: D.LAB 19:25 → D.M2 20:09 → D.LAB 09-20 13:30
PROVIDERS: ATTEND Internal Medicine Nephrology
DX: D64.9 Anemia, unspecified (principal)

== ENCOUNTER 2018-10-09 23:02 | Inpatient (IN) | payer MEDICAID ==
[~2018-10-09] VITALS: Ht 182.9 cm; Wt 84.2 kg
[2018-10-10] VITALS (37 sets, daily range): BP systolic 118–196; BP diastolic 15–151; Ht 182.9 cm; Wt 84.2 kg
[2018-10-10 00:19] LABS: BASOPHILS 0.2 % (0-2); EOSINOPHILS 0 % (0-7); HEMOGLOBIN 10.9 g/dL (13.5-17.5); IMMATURE GRANULOCYTES 0.3 % (0-5); LYMPHOCYTES 6.7 % (15-50); MCV 96.8 fL (80.0-100.0); MEAN PLATELET VOLUME 10.2 fL (7.4-10.4); MONOCYTES 3.4 % (2-11); NEUTROPHILS 89.4 % (40-80); PLATELET COUNT 148 10x3/uL (130-400); RBC 3.41 10x6/uL (4.20-6.10); RDW 15.7 % (11.5-14.5); WBC 5.9 10x3/uL (4.8-10.8)
--- NOTE | 2018-10-10 00:33 | NUR ---
PT RESTING ON BED, PT FAMILY AT BEDSIDE.
[2018-10-10 00:40] LABS: ALBUMIN 3.6 g/dL (3.4-5.0); ALKALINE PHOSPHATASE 72 U/L (46-116); ALT (SGPT) 28 U/L (10-68); BILIRUBIN - TOTAL 0.75 mg/dL (0.2-1.3); CALC OSMOLALITY 309 mosm/kg (275-300); CARBON DIOXIDE 14.9 mmol/L (21.0-32.0); CHLORIDE - SERUM 97 mmol/L (98-107); CKMB 9.5 U/L (0.0-3.6); CREATINE KINASE 206 UL (21-232); CREATININE - SERUM 14.5 mg/dL (0.6-1.3); GLUCOSE 146 mg/dL (74-106); MAGNESIUM - SERUM 2.1 mg/dL (1.8-2.4); PROTEIN - SERUM 8.4 g/dL (6.4-8.2); SODIUM 134 mmol/L (136-145); UREA NITROGEN 121 mg/dL (7-18); eGFR NON AFRICAN AMERICAN 4 mL/min (90-120)
[2018-10-10 00:48] LABS: CALCIUM 6.3 mg/dL (8.5-10.1)
[2018-10-10 00:49] LABS: POTASSIUM - SERUM 8.8 mmol/L (3.5-5.1)
[2018-10-10 00:57] LABS: TROPONIN-I 0.052 ng/mL (0.000-0.060)
--- NOTE | 2018-10-10 01:35 | NUR ---
RHYTHM CHANGE NOTED ON PT. EDP DOWNEN, RT, AND RN AT PT BEDSIDE. PT PLACED ON PACER PADS AT THIS TIME AND PLACED ON 4L VIA NC.
--- NOTE | 2018-10-10 01:45 | NUR ---
R EJ PLACED BY EDP DOWNEN AT BEDSIDE
--- NOTE | 2018-10-10 01:48 | NUR ---
PT MOVED TO TRAUMA 3 VIA STRETCHER
--- NOTE | 2018-10-10 02:10 | NUR ---
VS CONTINUOUSLY MONITORED AT THIS TIME. PT IS RESTING QUIETLY AFTER RECEIVING ATIVAN IV.
--- NOTE | 2018-10-10 03:25 | NUR ---
RECEIVED PT TO 2303 FROM ER. PT ATTACHED TO MONITORS. ALL MONITORS WORKING CORRECTLY. NO SIGNS OF ACUTE DISTRESS AT THIS TIME. PT IS ANSWERING QUESTIONS. DIALYSIS NURSE IS PRESENT TO DO DIALYSIS AT THIS TIME. WILL CONTINUE TO MONITOR.
[2018-10-10 03:32] LABS: CARBON DIOXIDE 14.6 mmol/L (21.0-32.0); CHLORIDE - SERUM 97 mmol/L (98-107); CKMB 8.7 U/L (0.0-3.6); CREATINE KINASE 212 UL (21-232); CREATININE - SERUM 14.9 mg/dL (0.6-1.3); MAGNESIUM - SERUM 2.2 mg/dL (1.8-2.4); SODIUM 136 mmol/L (136-145); UREA NITROGEN 128 mg/dL (7-18); eGFR NON AFRICAN AMERICAN 4 mL/min (90-120)
[2018-10-10 03:33] LABS: CALC OSMOLALITY 310 mosm/kg (275-300)
[2018-10-10 03:34] LABS: CALCIUM 6.7 mg/dL (8.5-10.1); GLUCOSE 66 mg/dL (74-106); POTASSIUM - SERUM 7.9 mmol/L (3.5-5.1); TROPONIN-I 0.066 ng/mL (0.000-0.060)
--- NOTE | 2018-10-10 07:00 | NUR ---
ASSESSMENT COMPLETE. HD IN PROGRESS. PT VOICES NO CO AT TIME. L ARM FISTULA.
--- NOTE | 2018-10-10 07:47 | NUR ---
DR BENTON CALLED INSTRUCT PT IN AFIB HR 112. BP 166/132. CARDIZEM GTT ORDERED. PT STATES NEVER HAD AN IRREGULAR HEART BEAT. DIALYSIS NURSE AT [facility] STATES I TOOK HIM OFF 15MIN EARLY.
--- NOTE | 2018-10-10 07:55 | NUR ---
PT TX STOPPED APPROX 15 MINUTES EARLY HR AND B/P ELEVATED SIGNIFICANTLY. 3.2L FLUID OFF. PT RESP DROPPED FROM 22 TO 12. MORE ALERT. WAS ABLE TO REST DURING TX. DR BENTON NOTIFIED ABOUT PT.
--- NOTE | 2018-10-10 09:00 | NUR ---
LICE TREATMENT COMPLETE. WILL LEAVE ON SCALP FOR 15MINUTES.
[2018-10-10 14:05] LABS: ANION GAP 20.1 mmol/L (8-16); CARBON DIOXIDE 25.2 mmol/L (21.0-32.0); CREATININE - SERUM 9.8 mg/dL (0.6-1.3); POTASSIUM - SERUM 4.3 mmol/L (3.5-5.1)
[2018-10-10 14:08] LABS: CALCIUM 6.9 mg/dL (8.5-10.1)
--- NOTE | 2018-10-10 15:17 | NUR ---
1300 ASSUMED CARE OF PATIENT RESTING QUIETLY AWAKENS TO VOICE
--- NOTE | 2018-10-10 15:18 | NUR ---
1500 VOICES NO COPMPLAINTS REPOSITIONS SELF N BED INSTRUCTED TO USE CALL LIGHT TO GET OUT OF BED VERBALIZED UNDERSTANDING. COMPLAINED OF SLEEP IN HIS EYES GAVE WET WASHCLOTH TO ASSIST WITH CLEANING EYES.
--- NOTE | 2018-10-10 17:31 | MORECARE ---
CASE MANAGEMENT DISCHARGE SUMMARY PATIENT: RASHIDA OVIEDO UNIT: [id number] ADM DATE: 10/10/18 AGE: 63 : 55 SEX: M ROOM/BED: D.2303 AUTHOR: KAYLA MOSER PHYSICIAN: REFERRING PHYSICIAN: DELMAR BENTON MD DATE OF SERVICE: 10/10/18 Discharge Plan Patient Name: RASHIDA OVIEDO [facility] [facility] 1955 Planned Disposition: Home Anticipated Discharge Date: Discharge Date: Expected LOS: Initial Reviewer: [email or web address] Initial Review Date: 10/10/2018 Generated: 10/10/18 6:30 pm DCPIA - Discharge Planning Initial Assessment Updated by [email or web address]: Symone Spaulding on 10/10/18 5:30 pm * Is the patient Alert and Oriented? Yes * How many steps to enter\exit or inside your home? * PCP NO PCP * [facility]acy [facility] * Preadmission Environment Home with Family * ADLs Independent * Equipment Cane * List name and contact numbers for known caregivers / representatives who currently or will assist patient after discharge: CLAY OVIEDO [facility]- [phone] * Verbal permission to speak to the caregivers and representatives has been obtained from the patient. Yes * Community resources currently utilized None * Please name any agencies selected above. [facility] [phone] T-TH-S 6:00AM * Additional services required to return to the preadmission environment? No * Can the patient safely return to the preadmission environment? Yes * Has this patient been hospitalized within the prior 30 days at any hospital? Yes Patient Name: RASHIDA OVIEDO Page 49155 at 1731 All edits/amendments must be made on the electronic document DICTATION DATE: 10/10/181729 TANK CAR INSPECTOR: RHONDA 10/10/181729 RPT#: [id number] DC DATE: STATUS: ADM IN [facility] [address] [place] [address] END OF REPORT
--- NOTE | 2018-10-10 17:38 | MORECARE ---
CASE MANAGEMENT DISCHARGE SUMMARY PATIENT: RASHIDA OVIEDO UNIT: [id number] ADM DATE: 10/10/18 AGE: 63 : 55 SEX: M ROOM/BED: D.2303 AUTHOR: EHSAN,DOC PHYSICIAN: REFERRING PHYSICIAN: DELMAR BENTON MD DATE OF SERVICE: 10/10/18 Discharge Plan Patient Name: RASHIDA OVIEDO Facility: [facility]:[place] : 1955 Planned Disposition: Home Anticipated Discharge Date: Discharge Date: Expected LOS: Initial Reviewer: [email or web address] Initial Review Date: 10/10/2018 Generated: 10/10/18 6:38 pm Comments DCP- Discharge Planning Updated by [email or web address]: Symone Spaulding on 10/10/18 4:[address] Patient Name: RASHIDA OVIEDO Admission Status: ER Accout number: [id number] Admission Date: 10-10-2018 : 1955 Admission Diagnosis: Attending: DELMAR BENTON Current LOS: 1 Anticipated DC Date: Planned Disposition: Home Primary Insurance: MEDICAID [place] PENDING Discharge Planning Comments: CM met with patient and spouse at bedside. Patient states he lives at home with his son Clay [phone]. He plans on returning to their home upon discharge. He states he feels safe at his home. He states he will have family drive him home upon discharge. He states has dialysis T/TH/S @ [facility] [phone]. Patient states that he doesn't have any insurance currently because the birthdate was messed up. He denies any discharge needs at this time. CM will continue to follow and assist as needed with discharge planning / needs. Application Tester: Symone Spaulding DCPIA - Discharge Planning Initial Assessment Updated by [email or web address]: Symone Spaulding on 10/10/18 5:30 pm * Is the patient Alert and Oriented? Yes * How many steps to enter\exit or inside your home? * PCP NO PCP * [facility] * Preadmission Environment Home with Family * ADLs Independent * Equipment Cane * List name and contact numbers for known caregivers / representatives who currently or will assist patient after discharge: CLAY OVIEDO - SON- [phone] * Verbal permission to speak to the caregivers and representatives has been obtained from the patient. Yes * Community resources currently utilized None * Please name any agencies selected above. [facility]YSIS AT [facility] [phone] T-- 6:00AM * Additional services required to return to the preadmission environment? No * Can the patient safely return to the preadmission environment? Yes * Has this patient been hospitalized within the prior 30 days at any hospital? Yes Last DP export: 10/10/18 4:30 p Patient Name: RASHIDA OVIEDO Page [id number] at 1738 All edits/amendments must be made on the electronic document DICTATION DATE: 10/10/181737 AUTO RENTAL CLERK: RHONDA 10/10/181737 RPT#: [id number] DC DATE: STATUS: ADM IN [facility] [address] [place] [address] END OF REPORT
--- NOTE | 2018-10-10 19:10 | NUR ---
Received patient resting in bed with eyes closed, assessment completed per flowsheet. Patient AO x4, calm and cooperative. S1/S2 noted Controlled Afib with HR 79. Breathing is shallow on 3L via NC with O2 sat 96%, lung sounds clear bilateral upper and mid with diminished lower. Full ROM all extremities with all pulses palpable, L upper arm fistula thrill/Bruit noted. Denies pain or other needs at this time, see flowsheet for details. All VSS and will continue to monitor.
--- NOTE | 2018-10-10 21:00 | NUR ---
Patient sitting up in bed with family at bedside, discussed disease process/treatment plan with all questions answered to satisfaction. HS meds given without difficulty, denies further needs and will continue to monitor.
--- NOTE | 2018-10-10 23:00 | NUR ---
Reassessment completed per flowsheet, no changes from previous assessment. S1/S2 noted Controlled Afib on telemetry with HR 65. Breathing is shallow on room air with O2 sat 95%, lung sounds clear bilateral upper and mid with diminished lower. All pulses palpable with cap refill < 3 sec, skin warm/dry. See flowsheet for details, no further needs and will continue to monitor.
[2018-10-11] VITALS (13 sets, daily range): BP systolic 115–178; BP diastolic 58–95
--- NOTE | 2018-10-11 01:00 | NUR ---
Patient resting in bed with eyes closed, no s/s of distress at this time. Denies pain or other needs at this time, all VSS and will continue to monitor.
--- NOTE | 2018-10-11 01:24 | NUR ---
Patient noted to be NSR on telemetry with HR 61, rythmic and regular.
--- NOTE | 2018-10-11 03:00 | NUR ---
Reassessment completed per flowsheet, no s/s of distress at this time. S1/S2 noted Sinus Krunal on telemetry with HR 58, rythmic and regular. Breathing is shallow/unlabored on room air with O2 sat 96%, lung sounds clear bilateral upper and mid with diminished lower. All pulses palpable with cap refill < 3 sec, skin warm/dry. C/O headache/rib pain 3/10 post PRN medication, will reassess. No further needs at this time, see flowsheet for details. All VSS and will continue to monitor.
[2018-10-11 04:31] LABS: BASOPHILS 0 % (0-2); EOSINOPHILS 0.4 % (0-7); HEMATOCRIT 29.7 % (42.0-54.0); HEMOGLOBIN 9.8 g/dL (13.5-17.5); IMMATURE GRANULOCYTES 0.2 % (0-5); LYMPHOCYTES 10.2 % (15-50); MCH 31.5 pg (26.0-34.0); MCV 95.5 fL (80.0-100.0); MONOCYTES 5.4 % (2-11); NEUTROPHILS 83.8 % (40-80); PLATELET COUNT 114 10x3/uL (130-400); RBC 3.11 10x6/uL (4.20-6.10); RDW 15.3 % (11.5-14.5); WBC 5.2 10x3/uL (4.8-10.8)
[2018-10-11 04:54] LABS: ANION GAP 21.4 mmol/L (8-16); CARBON DIOXIDE 23.4 mmol/L (21.0-32.0); CREATININE - SERUM 10.3 mg/dL (0.6-1.3); MAGNESIUM - SERUM 1.9 mg/dL (1.8-2.4); POTASSIUM - SERUM 4.8 mmol/L (3.5-5.1)
[2018-10-11 05:00] LABS: PHOSPHOROUS 10.6 mg/dL (2.5-4.9)
--- NOTE | 2018-10-11 05:00 | NUR ---
Patient sleeping in bed with eyes closed, no s/s of distress at this time. AM labs collected without difficulty, denies further needs and will continue to monitor.
[2018-10-11 05:01] LABS: CALCIUM 6.4 mg/dL (8.5-10.1)
[2018-10-11 06:14] LABS: HEPATITIS C ANTIBODY >11.0 S/CO RAT (0.0-0.9)
--- NOTE | 2018-10-11 09:31 | NUR ---
PT RECIEVED 0700 ALERT AND ORIENTED ON ROOM AIR, LUE FISTULA THRILL AND BRUIT PRESENT, R THUMB PIV IN PLACE, CONTINENT, SEE SHIFT ASSESSMENT FOR DETAILS 0900 ATE 100% BREAKFAST AND TOOK AM MEDS WITHOUT DIFFICULTY
--- NOTE | 2018-10-11 10:14 | NUR ---
REPORT CALLED, PT TO TRANSFER ROOMS
--- NOTE | 2018-10-11 10:26 | NUR ---
PATIENT RECEIVED FROM ICU. PATIENT AMBULATED TO BS CHAIR. PATIENT IS STABLE AND VSS. PATIENT DENIES ANY NEEDS OR PAIN. ASSESSMENT COMPLETED. ORIENTED PATIENT TO ROOM AND CALL LIGHT. CALL LIGHT IN REACH. WILL CONTINUE WITH PLAN OF CARE.
--- NOTE | 2018-10-11 14:34 | NUR ---
PATIENT LAYING IN BED ON RT SIDE WITH EYES CLOSED AND BREATHING EVENLY. WILL CONTINUE TO MONITOR. SR UP X 2 BED IN LOW POSTION AND CALL LIGHT IN REACH.
--- NOTE | 2018-10-11 18:10 | NUR ---
PATIENT COMPLAINS OF PAIN AT AN "8" TO NECK AND ABDOMEN. MEDICATED PER MAR. VSS. WILL CONTINUE TO MONITOR PATIENT. SR UP X 2 BED IN LOW POSITION AND CALL LIGHT IN REACH.
--- NOTE | 2018-10-12 04:18 | NUR ---
PT COMPLAING OF SOB. O2-94%. PLACED PT ON 2L NC. LUNG SOUNDS CLEAR. PT SITTING UP IN BED. INSTRUCTED PT TO TAKE DEEP BREATHS IN THROUGH NOSE AND OUT MOUTH. PT VITALS STABLE. BED LOW CALL LIGHT WITHIN REACH. WILL CONTINUE TO MONITOR.
[2018-10-12 05:27] VITALS: BP 157/56
--- NOTE | 2018-10-12 05:50 | NUR ---
I have reviewed this patient and I concur with the Shift Assessment completed by the Licensed Practical Nurse today this shift.
[2018-10-12 06:05] LABS: BASOPHILS 0.4 % (0-2); EOSINOPHILS 0.4 % (0-7); HEMATOCRIT 31.6 % (42.0-54.0); HEMOGLOBIN 10.4 g/dL (13.5-17.5); LYMPHOCYTES 15.7 % (15-50); MCH 31.5 pg (26.0-34.0); MCHC 32.9 g/dL (31.0-37.0); MCV 95.8 fL (80.0-100.0); MEAN PLATELET VOLUME 10.6 fL (7.4-10.4); MONOCYTES 6.9 % (2-11); NEUTROPHILS 76.6 % (40-80); PLATELET COUNT 130 10x3/uL (130-400); RDW 15.2 % (11.5-14.5); WBC 5.5 10x3/uL (4.8-10.8)
[2018-10-12 06:36] LABS: ANION GAP 22.6 mmol/L (8-16); CARBON DIOXIDE 22.5 mmol/L (21.0-32.0); MAGNESIUM - SERUM 1.9 mg/dL (1.8-2.4); POTASSIUM - SERUM 5.1 mmol/L (3.5-5.1)
[2018-10-12 06:40] LABS: CALCIUM 6.3 mg/dL (8.5-10.1); PHOSPHOROUS 11.7 mg/dL (2.5-4.9)
--- NOTE | 2018-10-12 06:44 | NUR ---
PT RESTING IN BED ALERT AND ORIENTED. PT HAS UNPRODUCTIVE COUGHING. PT DENIES ANY PAIN OR NEEDS AT THIS TIME. BED LOW CALL LIGHT WITHIN REACH. WILL CONTINUE TO MONITOR.
--- NOTE | 2018-10-12 07:10 | NUR ---
REPORT RECEIVED FROM SUGAR CANE PLANTER MACHINE OPERATOR. PATIENT LAYING IN BED ON BACK WITH EYES CLOSED AND BREATHING EVENLY. VSS. WILL CONTINUE WITH PLAN OF CARE. SR UP BED IN LOW POSITION AND CALL LIGHT IN REACH.
[2018-10-12 09:11] VITALS: BP 165/74
--- NOTE | 2018-10-12 11:30 | NUR ---
PATIENT IS STABLE AND VSS. PATIENT TO DIALYSIS VIA BED AND HOSPITAL PERSONNEL.
[2018-10-12 12:44] VITALS: BP 142/67
--- NOTE | 2018-10-12 15:07 | NUR ---
DIALYSIS TX TERMINATED 30 MINUTES EARLY AT THE PTS REQUEST. 2OOOMLS REMOVED WHICH IS WITHIN THE TREATMENT GOAL.
[2018-10-12 17:09] VITALS: BP 142/69
[2018-10-12 17:13] LABS: APPEARANCE CLEAR (CLEAR); COLOR DK YELLOW (YELLOW); NITRITE NEGATIVE (NEGATIVE); SPECIFIC GRAVITY 1.005 (1.005-1.020)
[2018-10-12 17:14] LABS: BILIRUBIN NEGATIVE (NEGATIVE); GLUCOSE 100 mg/dL (NEGATIVE); KETONE NEGATIVE (NEGATIVE); PROTEIN 2+ mg/dL (NEGATIVE); UROBILINOGEN NORMAL (NORMAL)
[2018-10-12 17:15] LABS: EPITHELIAL CELLS NSEEN /hpf (0-5); RED CELLS - URINE 0-5 /hpf (0-5); WHITE CELLS - URINE 0-5 /hpf (0-5)
[2018-10-12 17:16] LABS: BACTERIA FEW /hpf (NONE SEEN)
[2018-10-12 17:20] LABS: UDS - AMPHET NEGATIVE QUAL (NEGATIVE); UDS - BARB NEGATIVE QUAL (NEGATIVE); UDS - BENZO NEGATIVE QUAL (NEGATIVE); UDS - COCAINE NEGATIVE QUAL (NEGATIVE); UDS - OPIATE POSITIVE QUAL (NEGATIVE); UDS - PCP NEGATIVE QUAL (NEGATIVE); UDS - THC POSITIVE QUAL (NEGATIVE)
--- NOTE | 2018-10-12 19:30 | NUR ---
PT SITTING UP IN BED ALERT AND ORIENTED. RR EVEN AND UNLABORED. BED LOW CALL LIGHT WITHIN REACH. WILL CONTINUE TO MONITOR.
[2018-10-12 20:00] VITALS: BP 140/58
[2018-10-13] VITALS: BP 156/60
[2018-10-13 04:00] VITALS: BP 161/59
--- NOTE | 2018-10-13 04:15 | NUR ---
I have reviewed this patient and I concur with the Shift Assessment completed by the Licensed Practical Nurse today this shift.
--- NOTE | 2018-10-13 05:12 | NUR ---
PT COMPLAING OF NAUSEA. NO PRN SCHEDULED. WILL CONTINUE TO MONITOR.
[2018-10-13 06:37] LABS: BASOPHILS 0.2 % (0-2); EOSINOPHILS 0.8 % (0-7); HEMATOCRIT 32.8 % (42.0-54.0); HEMOGLOBIN 10.9 g/dL (13.5-17.5); LYMPHOCYTES 19.7 % (15-50); MCH 31.7 pg (26.0-34.0); MCHC 33.2 g/dL (31.0-37.0); MCV 95.3 fL (80.0-100.0); MEAN PLATELET VOLUME 10.4 fL (7.4-10.4); MONOCYTES 5.3 % (2-11); PLATELET COUNT 132 10x3/uL (130-400); RBC 3.44 10x6/uL (4.20-6.10); RDW 15.1 % (11.5-14.5); WBC 4.9 10x3/uL (4.8-10.8)
[2018-10-13 07:00] LABS: ANION GAP 22.6 mmol/L (8-16); CARBON DIOXIDE 25.7 mmol/L (21.0-32.0); CREATININE - SERUM 9.9 mg/dL (0.6-1.3); MAGNESIUM - SERUM 1.9 mg/dL (1.8-2.4)
[2018-10-13 07:04] LABS: PHOSPHOROUS 8.5 mg/dL (2.5-4.9); POTASSIUM - SERUM 4.3 mmol/L (3.5-5.1)
[2018-10-13 08:17] VITALS: BP 170/66
[2018-10-13] MEDS ORDERED: LOPRESSOR25 MG PO (10:29)
[2018-10-13] MEDS ORDERED: LISINOPRIL10 MG PO (11:12)
--- NOTE | 2018-10-13 12:57 | MORECARE ---
CASE MANAGEMENT DISCHARGE SUMMARY PATIENT: RASHIDA OVIEDO UNIT: [id number] ADM DATE: 10/10/18 AGE: 63 : 55 SEX: M ROOM/BED: D.2136 AUTHOR: EHSAN,DOC PHYSICIAN: REFERRING PHYSICIAN: DELMAR BENTON MD DATE OF SERVICE: 10/13/18 Discharge Plan Patient Name: RASHIDA OVIEDO Facility: [facility]:[place] : 1955 Planned Disposition: Home Anticipated Discharge Date: 10/13/18 Discharge Date: Expected LOS: 3 Initial Reviewer: [email or web address] Initial Review Date: 10/10/2018 Generated: 10/13/18 1:57 pm DCP- Discharge Planning Updated by [email or web address]: Symone Spaulding on 10/10/18 4:[address] Patient Name: RASHIDA OVIEDO Admission Status: ER Accout number: [id number] Admission Date: 10-10-2018 : 1955 Admission Diagnosis: Attending: DELMAR BENTON Current LOS: 1 Anticipated DC Date: Planned Disposition: Home Primary Insurance: MEDICAID [place] PENDING Discharge Planning Comments: CM met with patient and spouse at bedside. Patient states he lives at home with his son Clay [phone]. He plans on returning to their home upon discharge. He states he feels safe at his home. He states he will have family drive him home upon discharge. He states has dialysis T/TH/S @ [facility] [phone]. Patient states that he doesn't have any insurance currently because the birthdate was messed up. He denies any discharge needs at this time. CM will continue to follow and assist as needed with discharge planning / needs. Brusher Operator: Symone Spaulding DCPIA - Discharge Planning Initial Assessment Updated by [email or web address]: Symone Spaulding on 10/10/18 5:30 pm * Is the patient Alert and Oriented? Yes * How many steps to enter\exit or inside your home? * PCP NO PCP * [facility] * Preadmission Environment Home with Family * ADLs Independent * Equipment Cane * List name and contact numbers for known caregivers / representatives who currently or will assist patient after discharge: CLAY OVIEDO - [place]- [phone] * Verbal permission to speak to the caregivers and representatives has been obtained from the patient. Yes * Community resources currently utilized None * Please name any agencies selected above. HEMODIALYSIS AT [facility] [phone] T-TH-S 6:00AM * Additional services required to return to the preadmission environment? No * Can the patient safely return to the preadmission environment? Yes * Has this patient been hospitalized within the prior 30 days at any hospital? Yes Last DP export: 10/10/18 4:38 p Patient Name: RASHIDA OVIEDO Page 72549 at 1257 All edits/amendments must be made on the electronic document DICTATION DATE: 10/13/181255 DIRECTOR OF MARKETING COMMUNICATIONS: RHONDA 10/13/181255 RPT#: [id number] DC DATE: STATUS: ADM IN [facility] [address] [place] [address] END OF REPORT
--- NOTE | 2018-10-13 13:04 | MORECARE ---
CASE MANAGEMENT DISCHARGE SUMMARY PATIENT: RASHIDA OVIEDO UNIT: [id number] ADM DATE: 10/10/18 AGE: 63 : 55 SEX: M ROOM/BED: D.2136 AUTHOR: EHSAN,DOC PHYSICIAN: REFERRING PHYSICIAN: DELMAR BENTON MD DATE OF SERVICE: 10/13/18 Discharge Plan Patient Name: RASHIDA OVIEDO Facility: [facility]:[place] : 1955 Planned Disposition: Home Anticipated Discharge Date: 10/13/18 Discharge Date: Expected LOS: 3 Initial Reviewer: [email or web address] Initial Review Date: 10/10/2018 Generated: 10/13/18 2:04 pm Comments DCP- Discharge Planning Updated by [email or web address]: Arnulfo Gore on 10/13/18 12:[address] Patient Name: RASHIDA OVIEDO Encounter No: [id number] : 1955 Primary Insurance: MEDICAID [place] PENDING Anticipated DC Date: 10-13-2018 Planned Disposition: Home DCP follow-up note: CM MET WITH PT IN ROOM REGARDING MEDICAID ISSUES. PT REPORTS THAT HE HAS AIR INTELLIGENCE SPECIALIST AT DIALYSIS UNIT HELPING HIM AND THAT HE HAS CORRECTED HIS BIRTHDATE WITH [facility] BUT NOW THEY WANT AN ORIGINAL CERTIFICATE AND VERIFICATION OF INCOME FROM SOCIAL SECURITY. PT STATES HE MAY HAVE HIS CERTIFICATE "SOMEWHERE" AND IF NOT, HE KNOWS HOW TO GET ONE. PT REPORTS ABILITY TO GO TO SOCIAL SECURITY OFFICE AND GET PROOF OF INCOME FOR MEDICAID AND INFORMED CM THAT HE WILL TAKE CARE OF IT TODAY WHEN HE GETS OUT OF THE HOSPITAL. PT REPORTS KNOWING IMPORTANCE OF TAKING CARE OF THIS HE HAS BEEN TOLD THEY WILL SOON KICK HIM OUT OF THE DIALYSIS UNIT WITHOUT INSURANCE AND HE WILL WITHOUT DIALYSIS. CM CALLED [facility]UMAN [facility] OF [facility], SPOKE TO WORKER WHO INFORMED CM THAT THERE WAS NOTHING THAT COULD BE DONE, THE CHANGE REPORT DONE BY PT CAN TAKE UP TO THIRTY DAYS TO PROCESS. CM EXPLAINED PT'S MEDICAL SITUATION AND ASKED FOR A CERTIFIED CYTOTECHNOLOGIST. CM SPOKE TO CERTIFIED CYTOTECHNOLOGIST JUDE MORALES WHO TOOK CARE OF THE ISSUE AND REPORTS PT'S MEDICAID TO BE ACTIVE, PROVIDED MEDICAID NUMBER OF [id number]. CM PROVIDED THE NUMBER TO THE PATIENT [facility]. PT DENIES FURHTER NEEDS, PT'S SON HERE TO TRANSPORT PT HOME. Arnulfo Gore, CASE MANAGEMENT DCP- Discharge Planning Updated by [email or web address]: Symone Spaulding on 10/10/18 4:[address] Patient Name: RASHIDA OVIEDO Admission Status: ER Accout number: [id number] Admission Date: 10-10-2018 : 1955 Admission Diagnosis: Attending: DELMAR BENTON Current LOS: 1 Anticipated DC Date: Planned Disposition: Home Primary Insurance: MEDICAID [place] PENDING Discharge Planning Comments: CM met with patient and spouse at bedside. Patient states he lives at home with his son Clay [phone]. He plans on returning to their home upon discharge. He states he feels safe at his home. He states he will have family drive him home upon discharge. He states has dialysis T/TH/S @ [facility] [phone]. Patient states that he doesn't have any insurance currently because the birthdate was messed up. He denies any discharge needs at this time. CM will continue to follow and assist as needed with discharge planning / needs. Meat Dresser: Symone Spaulding DCPIA - Discharge Planning Initial Assessment Updated by [email or web address]: Symone Spaulding on 10/10/18 5:30 pm * Is the patient Alert and Oriented? Yes * How many steps to enter\\exit or inside your home? * PCP NO PCP * [facility] * Preadmission Environment Home with Family * ADLs Independent * Equipment Cane * List name and contact numbers for known caregivers / representatives who currently or will assist patient after discharge: CLAY OVIEDO - SON- [phone] * Verbal permission to speak to the caregivers and representatives has been obtained from the patient. Yes * Community resources currently utilized None * Please name any agencies selected above. HEMODIALYSIS AT [facility] [phone] T-TH-S 6:00AM * Additional services required to return to the preadmission environment? No * Can the patient safely return to the preadmission environment? Yes * Has this patient been hospitalized within the prior 30 days at any hospital? Yes Last DP export: 10/13/18 11:57 a Patient Name: RASHIDA OVIEDO Page 61477 at 1304 All edits/amendments must be made on the electronic document DICTATION DATE: 10/13/181302 SAXOPHONE TEACHER: RHONDA 10/13/18 130 RPT#: [id number] DC DATE: STATUS: ADM IN [facility] [address] [place] [address] END OF REPORT
--- NOTE | 2018-10-15 10:39 | CN ---
PATIENT NAME:RASHIDA OVIEDO MEDICAL RECORD: [id number] : 55 LOCATION:D. D.2136 ADMIT DATE: 10/10/18 ACCOUNT: [id number] CONSULTING PHYSICIAN: JAYLYN PRICE MD REFERRING PHYSICIAN: DELMAR BENTON MD DATE OF CONSULTATION: 10/12/2018 HISTORY OF PRESENT ILLNESS: A 63-year-old gentleman with history of noncompliance, history of hypertension, renal insufficiency, diabetes mellitus. He was admitted with hyperkalemia, had a fairly remarkable sine wave changes on his ECG. Dialyzed urgently, he had some post-dialysis atrial fibrillation. This has settled down nicely. He has been changed to beta-blockade as well for his hypertension, which should provide a nice antiarrhythmic effect. ALLERGIES: None known. MEDICATIONS: Typically include Glucotrol 2.5 p.o. daily, Zoloft 50 mg p.o. daily, clonidine 0.2 as needed, hydralazine 100 t.i.d., erythropoietin with dialysis. REVIEW OF SYSTEMS: The patient reports easy bruising but reports no swollen glands. The patient reports no fever, no night sweats, no significant weight gain, no significant weight loss. No significant exercise tolerance. The patient reports no dry eyes, no irritation, no vision change. Patient reports no difficulty hearing and no ear pain. Patient reports no frequent nose bleeds or nose and sinus problems. Patient reports on arm pain on exertion. No shortness of breath while lying down. No history of heart murmur. Patient reports no cough, no wheezing or coughing up blood. Patient reports no abdominal pain, no vomiting. Normal appetite. No diarrhea and not vomiting blood. No nausea and no constipation. Patient reports no incontinence. No difficulty urinating. No hematuria. No increased frequency. Patient reports no muscle aches. No weakness, no arthralgias, no back pain. No swelling of the extremities. Patient reports no abnormal mole, no jaundice, no rashes. Reports no loss of consciousness. No weakness and no numbness. No seizures, dizziness, or headaches. The patient reports no depression, no sleep disturbance, feeling safe in a relationship and no alcohol abuse. Patient reports on fatigue. Reports no runny nose or sinus pressure. No itching, no hives, and no frequent sneezing. PHYSICAL EXAMINATION: GENERAL: Pleasant gentleman in no acute distress. VITAL SIGNS: Blood pressure 157/56, pulse 54 and regular. HEENT: Normocephalic, atraumatic. NECK: No JVD or bruit. HEART: Regular. A 2/6 systolic ejection murmur. LUNGS: Good air excursion. ABDOMEN: Soft, nontender. EXTREMITIES: Pulses 2+ with no edema. DIAGNOSTIC DATA: ECG currently shows normal sinus rhythm with LVH. IMPRESSION: Suspect atrial fibrillation secondary to metabolic disturbances, increase catecholamine derivatives, etc, however, he has responded nicely to dialysis. I agree with beta blockade for both antihypertensive and antiarrhythmic effect. Given the patient's history of noncompliance, I would CONSULT REPORT [id number] RASHIDA OVIEDO not consider him a DOAC candidate. We will check echocardiographic study. TRANSINT:[id number] Voice Confirmation ID: [id number] DOCUMENT ID: [id number] JAYLYN PRICE MD at 1039 CC: [id number] DICTATION DATE: 10/12/18829 PAINTER HELPER: 10/12/18 0941 DIS IN 10/13/18 [facility] [address] [place] [address]
--- NOTE | 2018-10-15 10:39 | EC ---
PATIENT:RASHIDA OVIEDO DATE OF SERVICE: 10/10/18 SEX: M MEDICAL RECORD: [id number] DATE OF : [birth year] LOCATION:D.M2 D.213 AGE OF PATIENT: 63 ADMISSION DATE: 10/10/18 REFERRING PHYSICIAN: INTERPRETING PHYSICIAN: JAYLYN PRICE MD ECHOCARDIOGRAM REPORT ECHO CHARGES 4 ECHO COMPLETE Date: 10/12/18 CLINICAL DIAGNOSIS: A-FIB ECHOCARDIOGRAPHIC MEASUREMENTS (adult normal given) AC root (d.<3.7cm) 3.7 cm LV Septum d (<1.2 cm> 1.3 cm Valve Excursion 2.2 cm LV Septum (systole) 2.0 cm Left Atria (s.<4.0cm> 4.9 cm LVPW d(<1.2cm) 1.6 cm RV (d.<2.3cm) 3.9 cm LVPW (sytole) 2.2 cm LV diastole(<5.6CM) 5.7 cm MV E-F(>70mm/sec) cm LV systole 3.9 cm LVOT Diameter 1.9 cm MV exc.(>10mm) cm Est.ejection fraction (50-75%) % DOPPLER: LVIT cm/sec A 27.0 cm/sec E 81.0 cm/sec LA cm/sec RVSP 37.0 mmHg LVOT 107 cm/sec AOP1/2T m/s Asc. Ao 133 cm/sec RVOT 60.0 cm/sec RA cm/sec PA 100 cm/sec AV Gradient Peak 7.1 mmHg AV Mean 3.4 mmHg AV Area 2.3 cm MV Gradient Peak 3.6 mmHg MV Mean 1.2 mmHg MV Area cm COMMENTS: Chief Wellness Officer: 1 LISE TIWARIOE Manufacturing Specialist: 3 Dr. Mary TAPE# PACS Pericardial Effusion N DATE OF SERVICE: Adequate 2-D, color-flow and spectral Doppler, and M-mode. LVH is present. LV dimensions are normal. LV is globally hypokinetic with reduced EF. Overall estimated EF is 30% to 35%. Aortic valve sclerosis without stenosis by Doppler interrogation. Left atrium is dilated at 4.9 cm. Mitral valve shows no prolapse. Moderate MR. Right-sided chambers are grossly normal. [id number] TR. ECHOCARDIOGRAM REPORT [id number] RASHIDA OVIEDO TRANSINT:[id number] Voice Confirmation ID: [id number] DOCUMENT ID: [id number] JAYLYN PRICE MD at 1039 CC: [id number] DICTATION DATE: 10/12/18 1457 GRADER OPERATOR: 10/12/18 193 DIS IN 10/13/18 [facility] [address] [place] [id number]
== END 2018-10-13 13:18 | disposition home or self-care (01) | DRG 640 ==
LOC: D.ER 23:02 → D.M2 10-10 02:56 → D.ICU 10-10 02:56 → D.M2 10-11 10:14
PROVIDERS: Family Medicine; ADMIT Internal Medicine Nephrology; ATTEND Internal Medicine Nephrology
PROC: 5A1D70Z Performance of Urinary Filtration, Intermittent, Less than 6 Hours Per Day (ICD-10-PCS; principal; 2018-10-10)
DX: E87.5 Hyperkalemia (principal); N18.6 End stage renal disease; I12.0 Hypertensive chronic kidney disease with stage 5 chronic kidney disease or end stage renal disease; I47.2 Ventricular tachycardia; I48.91 Unspecified atrial fibrillation; E11.22 Type 2 diabetes mellitus with diabetic chronic kidney disease; Z99.2 Dependence on renal dialysis; J44.9 Chronic obstructive pulmonary disease, unspecified; D63.1 Anemia in chronic kidney disease; E83.39 Other disorders of phosphorus metabolism; F17.210 Nicotine dependence, cigarettes, uncomplicated

== ENCOUNTER 2018-12-10 14:37 | Inpatient (IN) | payer MEDICAID ==
[~2018-12-10] VITALS: Ht 182.9 cm; Wt 90.9 kg
--- NOTE | 2018-12-10 05:00 | NUR ---
UNABLE TO OBTAIN LAST DOSES, PATIENT DOES NOT REMEMBER. WILL INFORM DAY SHIFT TO GET INFORMATION FROM FAMILY.
[~2018-12-10 14:37] MED LIST changes: +LISINOPRIL10 MG PO; +LOPRESSOR25 MG PO
[2018-12-10 15:16] LABS: BASOPHILS 0.2 % (0-2); EOSINOPHILS 0.8 % (0-7); HEMATOCRIT 34.2 % (42.0-54.0); HEMOGLOBIN 11.6 g/dL (13.5-17.5); IMMATURE GRANULOCYTES 0.6 % (0-5); MCH 31.4 pg (26.0-34.0); MCHC 33.9 g/dL (31.0-37.0); MCV 92.7 fL (80.0-100.0); MONOCYTES 5.9 % (2-11); NEUTROPHILS 77.5 % (40-80); PLATELET COUNT 116 10x3/uL (130-400); RBC 3.69 10x6/uL (4.20-6.10); RDW 13.5 % (11.5-14.5); WBC 5.1 10x3/uL (4.8-10.8)
[2018-12-10 15:28] LABS: APTT 28.5 SECONDS (22.8-39.4); INR 1.26 (0.85-1.17); PROTIME 15.2 SECONDS (11.6-15.0)
[2018-12-10 16:53] LABS: ALBUMIN 3.4 g/dL (3.4-5.0); ALKALINE PHOSPHATASE 94 U/L (46-116); ALT (SGPT) 37 U/L (10-68); BILIRUBIN - TOTAL 0.61 mg/dL (0.2-1.3); CALC OSMOLALITY 299 mosm/kg (275-300); CARBON DIOXIDE 22.8 mmol/L (21.0-32.0); CHLORIDE - SERUM 98 mmol/L (98-107); CKMB 3.9 U/L (0.0-3.6); CREATINE KINASE 168 UL (21-232); CREATININE - SERUM 10.9 mg/dL (0.6-1.3); GLUCOSE 115 mg/dL (74-106); PROTEIN - SERUM 7.8 g/dL (6.4-8.2); SODIUM 136 mmol/L (136-145); UREA NITROGEN 89 mg/dL (7-18); eGFR NON AFRICAN AMERICAN 5 mL/min (90-120)
--- NOTE | 2018-12-10 17:00 | NUR ---
PT RESTING IN BED TALKING WITH FAMILY AT BEDSIDE. WILL CON'T TO MONITOR.
[2018-12-10 17:01] LABS: PRO BNP 86375 pg/mL (0-125)
[2018-12-10 17:06] LABS: POTASSIUM - SERUM 6.9 mmol/L (3.5-5.1)
[2018-12-10 17:07] LABS: CALCIUM 6.6 mg/dL (8.5-10.1)
--- NOTE | 2018-12-10 17:30 | NUR ---
NO ACUTE CHANGES. WILL CON'T TO MONITOR.
[2018-12-10 18:36] VITALS: BP 155/68
--- NOTE | 2018-12-10 19:00 | NUR ---
PATIENT LAYING IN BED. HAS NO COMPLAINTS AT THIS TIME. NO DISTRESS NOTED.
[2018-12-10 20:00] VITALS: BP 170/74
--- NOTE | 2018-12-10 23:41 | NUR ---
PATIENT SITTING UP IN BED. NO COMPLAINTS OR DISTRESS NOTED.
[2018-12-11] VITALS: BP 187/80
--- NOTE | 2018-12-11 02:06 | NUR ---
I have reviewed this patient and I concur with the Shift Assessment completed by the Licensed Practical Nurse today this shift.
[2018-12-11 04:00] VITALS: BP 200/81
[2018-12-11 04:19] LABS: BASOPHILS 0.2 % (0-2); HEMATOCRIT 31.7 % (42.0-54.0); HEMOGLOBIN 10.5 g/dL (13.5-17.5); IMMATURE GRANULOCYTES 0.2 % (0-5); LYMPHOCYTES 22.9 % (15-50); MCH 30.8 pg (26.0-34.0); MCHC 33.1 g/dL (31.0-37.0); MONOCYTES 5.1 % (2-11); NEUTROPHILS 70.6 % (40-80); PLATELET COUNT 105 10x3/uL (130-400); RBC 3.41 10x6/uL (4.20-6.10); RDW 13.6 % (11.5-14.5); WBC 5.9 10x3/uL (4.8-10.8)
--- NOTE | 2018-12-11 04:28 | NUR ---
PATIENT'S BLOOD PRESSURE 200/81. PAGED DOCTOR PIZZA HUT ASSISTANT.
[2018-12-11 04:38] LABS: ANION GAP 21.2 mmol/L (8-16); CARBON DIOXIDE 23.8 mmol/L (21.0-32.0); CREATININE - SERUM 11.3 mg/dL (0.6-1.3); MAGNESIUM - SERUM 1.7 mg/dL (1.8-2.4)
[2018-12-11 04:44] LABS: CALCIUM 6.7 mg/dL (8.5-10.1); PHOSPHOROUS 10.2 mg/dL (2.5-4.9)
--- NOTE | 2018-12-11 04:50 | NUR ---
TALKED WITH LIEN STRANGE ABOUT BLOOD PRESSURE AND CRITICAL LABS. NEW ORDER FOR CLONIDINE 0.2MG, LISINOPRIL 10MG AND METOPROLOL 25MG TO BE GIVEN WITH AM MEDICATIONS. NO NEW ORDERS FOR CRITICAL LABS. WILL CONTINUE TO MONITOR.
--- NOTE | 2018-12-11 06:10 | NUR ---
PATIENT'S BLOOD SUGAR IS 68. JUICE AND CARIDAD CRACKERS GIVEN. WILL CONTINUE TO MONITOR.
--- NOTE | 2018-12-11 06:27 | NUR ---
PATIENT'S BLOOD SUGAR 82. WILL CONTINUE TO MONITOR.
--- NOTE | 2018-12-11 07:23 | NUR ---
AM ROUNDS- PT RESTING COMFORTABLY IN BED, WITH EYES CLOSED, EASILY AROUSES TO VOICE. RESP EVEN AND NONLABORED ON RA. RT PINKY IV SL. LT ARM FISTULA WITH THRILL AND BRUIE. PT REFUSED TO WEAR SCDS AT THIS TIME. CALL LIGHT IN REACH, NAD NOTED, WILL CONTINUE PLAN OF CARE.
[2018-12-11 08:01] VITALS: BP 172/81
--- NOTE | 2018-12-11 09:34 | NUR ---
CALLED ELIUD WITH RESPIRATORY AND INFORMED HER THAT PT IS A LITTLE SOB AND SAT IS 95% WANTS BREATHING TREATMENT.
[2018-12-11 09:56] VITALS: BMI 27.1
[2018-12-11 11:35] VITALS: BP 164/67
--- NOTE | 2018-12-11 11:44 | NUR ---
BLOOD SUGAR OF 124, NO COVERAGE NEEDED PER S/S. PT ASKING FOR DIET [facility] [place], WILL PROVIDE PT WITH [place] [place]. NAD NOTED,W ILL CONTINUE TO MONITOR.
--- NOTE | 2018-12-11 14:06 | NUR ---
PT TRANSFERED TO DIALYSIS VIA WHEELCHAIR, NAD NOTED.
[2018-12-11 20:00] VITALS: BP 147/72
--- NOTE | 2018-12-11 20:01 | NUR ---
ROUNDS COMPLETED. VSS, AAOX3. PT HAS BEEN UP AND WALKING. DENIES SOB OR RESP DISTRESS, BUT HAS EPISODES OF OCCASIONAL COUGH. PT DENIES ANY NEEDS AT THIS TIME. WILL CTM. CL IN REACH.
--- NOTE | 2018-12-11 23:52 | NUR ---
PT HAS BEEN COUGHING FREQUENTLY, NON-PRODUCTIVELY. NOTIFIED CERTIFIED MEDICAL TECHNICIAN ASSISTANTNanette BLANK. MALTSTER ORDERED TESSALON 100, Q4HP PRN. PT CURRENTLY RESTING IN BED. WILL CPOC.
[2018-12-12] VITALS: BP 151/75
[2018-12-12 04:00] VITALS: BP 161/79
[2018-12-12 04:56] VITALS: BP 151/75; Ht 182.9 cm; Wt 90.9 kg
--- NOTE | 2018-12-12 06:59 | NUR ---
PT FSBS 94. NO INTERVENTION CARRIED OUT AT THIS TIME. WILL CTM.
--- NOTE | 2018-12-12 07:59 | NUR ---
AM MEDS GIVEN AT THIS TIME. PT A/O X4, DYSPNEA WITH EXERTION, ON RA. RT HAND IV SL. PT DENIES ANY NEEDS AT THIS TIME. CALL LIGHT IN REACH, NAD NOTED, WILL CONTINUE PLAN OF CARE.
[2018-12-12 08:01] VITALS: BP 177/90
--- NOTE | 2018-12-12 11:40 | NUR ---
BLOOD SUGAR OF 111, NO COVERAGE NEEDED PER S/S. PT DENIES ANY NEEDS AT THIS TIME. CALL LIGHT IN REACH, NAD NOTED, WILL CONTINUE TO MONITOR.
--- NOTE | 2018-12-12 11:50 | NUR ---
PT WENT TO DIALYSIS VIA WHEELCHAIR, NAD NOTED.
--- NOTE | 2018-12-12 13:02 | MORECARE ---
CASE MANAGEMENT DISCHARGE SUMMARY PATIENT: RASHIDA OVIEDO UNIT: [id number] ADM DATE: 12/10/18 AGE: 63 : 55 SEX: M ROOM/BED: D.2106 AUTHOR: KAYLA MOSER PHYSICIAN: REFERRING PHYSICIAN: SIL DUGAN MD DATE OF SERVICE: 12/12/18 Discharge Plan Patient Name: RASHIDA OVIEDO [facility] [facility] 1955 Planned Disposition: Home Anticipated Discharge Date: Discharge Date: Expected LOS: Initial Reviewer: [email or web address] Initial Review Date: 12/12/2018 Generated: 12/12/18 2:02 pm Patient Name: RASHIDA OVIEDO Page 59117 at 1302 All edits/amendments must be made on the electronic document DICTATION DATE: 12/12/18 1302 PROGRESSIVE ASSEMBLER AND FITTER: RHONDA 12/12/18 1302 RPT#: [id number] DC DATE: STATUS: ADM IN [facility] [address] [place] [address] END OF REPORT
--- NOTE | 2018-12-12 13:16 | MORECARE ---
CASE MANAGEMENT DISCHARGE SUMMARY PATIENT: RASHIDA OVIEDO UNIT: [id number] ADM DATE: 12/10/18 AGE: 63 : 55 SEX: M ROOM/BED: D.2106 AUTHOR: EHSAN,DOC PHYSICIAN: REFERRING PHYSICIAN: SIL DUGAN MD DATE OF SERVICE: 12/12/18 Discharge Plan Patient Name: RASHIDA OVIEDO Facility: [facility]:[place] : 1955 Planned Disposition: Home Anticipated Discharge Date: Discharge Date: Expected LOS: Initial Reviewer: [email or web address] Initial Review Date: 12/12/2018 Generated: 12/12/18 2:16 pm Comments DCP- Discharge Planning Updated by [email or web address]: Arnulfo Gore on 12/12/18 12:[address] Patient Name: RASHIDA OVIEDO Admission Status: ER Accout number: [id number] Admission Date: 12-10-2018 : 1955 Admission Diagnosis: Attending: SIL DUGAN Current LOS: 2 Anticipated DC Date: Planned Disposition: Home Primary Insurance: MEDICAID [place] Discharge Planning Comments: CM RECEIVED ORDER FOR FALL RISK, MET WITH PT IN ROOM TO DISCUSS DISCHARGE PLANNING AND NEEDS. PT REPORTS LIVING AT HOME INDEPENDENTLY WITH ADULT SON. PT HAS NO MEDICAL EQUIPMENT AND NO OUTSIDE SERVICES ASSISTING IN THE HOME. PT GOES TO DIALYSIS AT 1000AM, TTS AT [facility], PT'S SON DRIVES PT TO AND FROM DIALYSIS. CM DISCUSSED AVAILABILITY OF HOME HEALTH, REHAB SERVICES AND MEDICAL EQUIPMENT. PT DENIES DISCHARGE NEEDS, REPORTS HIS SON WILL PICK HIM UP FOR DISCHARGE HOME. Agricultural Real Estate Agent: Arnulfo Gore DCPIA - Discharge Planning Initial Assessment Updated by [email or web address]: Arnulfo Gore on 12/12/18 1:11 pm * Is the patient Alert and Oriented? Yes * How many steps to enter\\exit or inside your home? * PCP DR. LA PATIENT REPORTS HE IS "IN PROCESS" OF GETTING IN WITH A NEW PRIMARY CARE DOCTOR. * [facility] * Preadmission Environment Home with Family * ADLs Independent * Equipment None * Other Equipment NO MEDICAL EQUIPMENT PROVIDER PREFERENCE * List name and contact numbers for known caregivers / representatives who currently or will assist patient after discharge: KINSEY CHAVARRIA,SISTER, CLAY OVIEDO, SON, * Verbal permission to speak to the caregivers and representatives has been obtained from the patient. N/A * Community resources currently utilized Other * Please name any agencies selected above. OUTPATIENT DIALYSIS, [facility], TTS, 1000 AM, SON DRIVES * Additional services required to return to the preadmission environment? No * Can the patient safely return to the preadmission environment? Yes * Has this patient been hospitalized within the prior 30 days at any hospital? No Last DP export: 12/12/18 12:02 p Patient Name: RASHIDA OVIEDO Page 08725 at 1316 All edits/amendments must be made on the electronic document DICTATION DATE: 12/12/181315 CONTRACTING ANALYST: RHONDA 12/12/18 1316 RPT#: [id number] DC DATE: STATUS: ADM IN [facility] [address] [place] [address] END OF REPORT
--- NOTE | 2018-12-12 13:24 | MORECARE ---
CASE MANAGEMENT DISCHARGE SUMMARY PATIENT: RASHIDA OVIEDO UNIT: [id number] ADM DATE: 12/10/18 AGE: 63 : 55 SEX: M ROOM/BED: D.2106 AUTHOR: EHSAN,DOC PHYSICIAN: REFERRING PHYSICIAN: SIL DUGAN MD DATE OF SERVICE: 12/12/18 Discharge Plan Patient Name: RASHIDA OVIEDO Facility: [facility]:[place] : 1955 Planned Disposition: Home Anticipated Discharge Date: Discharge Date: Expected LOS: Initial Reviewer: [email or web address] Initial Review Date: 12/12/2018 Generated: 12/12/18 2:24 pm Comments DCP- Discharge Planning Updated by [email or web address]: Arnulfo Gore on 12/12/18 12:[address] Patient Name: RASHIDA OVIEDO Admission Status: ER Accout number: [id number] Admission Date: 12-10-2018 : 1955 Admission Diagnosis: Attending: SIL DUGAN Current LOS: 2 Anticipated DC Date: Planned Disposition: Home Primary Insurance: MEDICAID [place] Discharge Planning Comments: CM RECEIVED ORDER FOR FALL RISK, MET WITH PT IN ROOM TO DISCUSS DISCHARGE PLANNING AND NEEDS. PT REPORTS LIVING AT HOME INDEPENDENTLY WITH ADULT SON. PT HAS NO MEDICAL EQUIPMENT AND NO OUTSIDE SERVICES ASSISTING IN THE HOME. PT GOES TO DIALYSIS AT 1000AM, TTS AT [facility], PT'S SON DRIVES PT TO AND FROM DIALYSIS. CM DISCUSSED AVAILABILITY OF HOME HEALTH, REHAB SERVICES AND MEDICAL EQUIPMENT. PT DENIES DISCHARGE NEEDS, REPORTS HIS SON WILL PICK HIM UP FOR DISCHARGE HOME. PT PLANS TO DISCHARGE HOME WITH ADULT SON, DENIES DISCHARGE NEEDS AT THIS TIME. CM TO FOLLOW AND ASSIST NEEDED. Pulverizer Feeder: Arnulfo Gore DCPIA - Discharge Planning Initial Assessment Updated by [email or web address]: Arnulfo Gore on 12/12/18 1:11 pm * Is the patient Alert and Oriented? Yes * How many steps to enter\\exit or inside your home? * PCP DR. [place] PATIENT REPORTS HE IS "IN PROCESS" OF GETTING IN WITH A NEW PRIMARY CARE DOCTOR. * [facility] * Preadmission Environment Home with Family * ADLs Independent * Equipment None * Other Equipment NO MEDICAL EQUIPMENT PROVIDER PREFERENCE * List name and contact numbers for known caregivers / representatives who currently or will assist patient after discharge: KINSEY CHAVARRIA,SISTER, CLAY OVIEDO, SON, * Verbal permission to speak to the caregivers and representatives has been obtained from the patient. N/A * Community resources currently utilized Other * Please name any agencies selected above. OUTPATIENT DIALYSIS, [facility], TTS, 1000 AM, SON DRIVES * Additional services required to return to the preadmission environment? No * Can the patient safely return to the preadmission environment? Yes * Has this patient been hospitalized within the prior 30 days at any hospital? No Last DP export: 12/12/18 12:16 p Patient Name: RASHIDA OVIEDO Page 31320 at 1324 All edits/amendments must be made on the electronic document DICTATION DATE: 12/12/18 1323 CLINICAL LABORATORY SCIENCE PROFESSOR: RHONDA 12/12/18 1323 RPT#: [id number] DC DATE: STATUS: ADM IN [facility] [address] [place] [address] END OF REPORT
--- NOTE | 2018-12-12 16:30 | NUR ---
PT BACK TO ROOM FROM DIALYSIS, FAMILY AT BEDSIDE.
--- NOTE | 2018-12-12 16:55 | NUR ---
GAVE ULTRAM FOR PAIN LEVEL OF 10/10. BLOOD SUGAR OF 124, NO COVERAGE NEEDED PER S/S. PT DENIES ANY OTHER NEEDS AT THIS TIME. CALL LIGHT IN REACH, NAD NOTED, WILL CONTINUE TO MONITOR.
[2018-12-12 20:00] VITALS: BP 141/92
--- NOTE | 2018-12-12 20:00 | NUR ---
RECIEVED BEDSIDE REPORT. VSS, AAOX4. NO S/S OF RESP DISTRESS. PT SITTING ON ON EDGE OF THE BED. STATES HE IS FEELING BETTER TONIGHT. PT DENIES ANY FURTHER NEEDS AT THIS TIME. WILL CPOC.
--- NOTE | 2018-12-12 23:44 | NUR ---
PT C/O CHEST AND BACK PAIN 05/03. 50MG PO ULTRAM GIVEN AT THIS TIME. WILL CTM.
[2018-12-13 00:09] VITALS: BP 156/84
--- NOTE | 2018-12-13 01:52 | NUR ---
PT C/O NAUSEA. STATES "I FEEL NAUSEATED AND SICK TO MY STOMACH." NOTIFIED RAVI TODD EYELET MACHINE OPERATOR. PEREZ ORDERED ZOPHRAN 4MG IV, PRN Q6HP.
[2018-12-13 04:00] VITALS: BP 168/82
[2018-12-13 06:29] LABS: ANION GAP 15.5 mmol/L (8-16); CALCIUM 7.6 mg/dL (8.5-10.1); CREATININE - SERUM 7.9 mg/dL (0.6-1.3); PHOSPHOROUS 8.3 mg/dL (2.5-4.9); POTASSIUM - SERUM 5.5 mmol/L (3.5-5.1)
--- NOTE | 2018-12-13 06:33 | NUR ---
FSBS 135. INSULIN NOT COMMISSARY OFFICER PER SLIDING SCALE. PT SITTING UP IN BED. DENIES ANY FURTHER NEEDS AT THIS TIME. WILL CPOC.
[2018-12-13 06:47] LABS: BASOPHILS 0.2 % (0-2); EOSINOPHILS 0.9 % (0-7); HEMATOCRIT 32.5 % (42.0-54.0); IMMATURE GRANULOCYTES 0.2 % (0-5); LYMPHOCYTES 13.7 % (15-50); MCH 31.4 pg (26.0-34.0); MCHC 33.8 g/dL (31.0-37.0); MCV 92.9 fL (80.0-100.0); MEAN PLATELET VOLUME 11.4 fL (7.4-10.4); MONOCYTES 4.4 % (2-11); NEUTROPHILS 80.6 % (40-80); RDW 13.5 % (11.5-14.5); WBC 5.5 10x3/uL (4.8-10.8)
[2018-12-13 06:48] LABS: PLATELET COUNT 141 10x3/uL (130-400)
--- NOTE | 2018-12-13 07:20 | NUR ---
RESTING QUIETLY ON RIGHT SIDE WITH EYES CLOSED. RESP EVEN,NONLABORED.
--- NOTE | 2018-12-13 08:20 | NUR ---
ASSESSMENT COMPLETE. SL TO R HAND. L AVF. DENIES ANY NEEDS AT THIS TIME.
[2018-12-13 08:48] VITALS: BP 139/72
[2018-12-13 11:59] VITALS: BP 152/81
--- NOTE | 2018-12-13 12:01 | NUR ---
SITTING ON SIDE OF BED EATING LUNCH. DENIES ANY NEEDS AT THIS TIME.
--- NOTE | 2018-12-13 13:12 | NUR ---
Nutrition follow-up: Visited with pt re: Renal ADA diet Pt with elevated K. Pt states he has had renal diet instructions before and was able to name several food items high in K. RDN reviewed renal ADA diet with pt and provided pt with printed diet information. RDN following.
--- NOTE | 2018-12-13 14:38 | NUR ---
RESTING QUIETLY IN BED. NO CHANGES NOTED AT THIS TIME.
[2018-12-13 16:17] VITALS: BP 146/79
--- NOTE | 2018-12-13 16:48 | NUR ---
C/O PAIN. TRAMADOL GIVEN.
--- NOTE | 2018-12-13 19:50 | NUR ---
EVENING ROUNDS COMPLETED. VSS, AAOX4, RR EVEN AND UNLABORED. SITTING UP IN BED WITH EYES OPEN. PT COMPLAIN OF OCCASIONAL NON-PRODUCTIVE COUGHS, STATES HE WILL LIKE TO TAKE HIS TESSALON ALONGSIDE EVENING MEDS. DENIES ANY FURTHER NEEDS AT THIS TIME. WILL CPOC. CL IN REACH.
[2018-12-13 20:00] VITALS: BP 167/77
--- NOTE | 2018-12-13 20:30 | NUR ---
PT FSBS 168. REFUSED INSULIN @ THIS TIME. WILL CTM.
[2018-12-14] VITALS: BP 136/67
[2018-12-14 04:00] VITALS: BP 151/73
[2018-12-14 05:05] LABS: BASOPHILS 0.2 % (0-2); EOSINOPHILS 1.1 % (0-7); HEMATOCRIT 32.9 % (42.0-54.0); HEMOGLOBIN 10.9 g/dL (13.5-17.5); IMMATURE GRANULOCYTES 0.2 % (0-5); LYMPHOCYTES 20.6 % (15-50); MCH 30.9 pg (26.0-34.0); MCHC 33.1 g/dL (31.0-37.0); MCV 93.2 fL (80.0-100.0); MONOCYTES 5.7 % (2-11); NEUTROPHILS 72.2 % (40-80); PLATELET COUNT 117 10x3/uL (130-400); RBC 3.53 10x6/uL (4.20-6.10); RDW 13.6 % (11.5-14.5); WBC 4.8 10x3/uL (4.8-10.8)
[2018-12-14 05:22] LABS: APTT 32.7 SECONDS (22.8-39.4); INR 1.25 (0.85-1.17); PROTIME 15.2 SECONDS (11.6-15.0)
[2018-12-14 05:38] LABS: CALCIUM 7.3 mg/dL (8.5-10.1); CARBON DIOXIDE 25.4 mmol/L (21.0-32.0); CREATININE - SERUM 9.6 mg/dL (0.6-1.3); PHOSPHOROUS 9.5 mg/dL (2.5-4.9); PROTEIN - SERUM 8.4 g/dL (6.4-8.2)
[2018-12-14 05:39] LABS: POTASSIUM - SERUM 6.4 mmol/L (3.5-5.1)
[2018-12-14 07:50] VITALS: BP 164/66
--- NOTE | 2018-12-14 07:50 | NUR ---
ASSESSMENT COMPLETE. SL TO R HAND. L AVF. NPO FOR PROCEDURE TODAY. DENIES ANY NEEDS AT THIS TIME.
--- NOTE | 2018-12-14 10:30 | NUR ---
OFF FLOOR TO DIALYSIS VIA WC.
--- NOTE | 2018-12-14 14:39 | NUR ---
RETURNED TO ROOM FROM DIALYSIS.
--- NOTE | 2018-12-14 14:52 | NUR ---
OFF FLOOR TO THORACENTESIS VIA BED..
--- NOTE | 2018-12-14 16:11 | NUR ---
RETURNED TO ROOM FROM SPECIALS VIA BED. FAMILY AT BEDSIDE.
--- NOTE | 2018-12-14 18:00 | NUR ---
NO CHANGES NOTED AT THIS TIME.
[2018-12-14 19:36] LABS: PROTEIN - BODY FLUID 4.2 G/DL
--- NOTE | 2018-12-14 19:45 | NUR ---
RESUMING CARE, PT LAYING IN BED A&O , BREATH SOUNDS EVEN UNLABORED RT FA SL , LEFT AVF LFT ARM RESERVE , NO C/O PAIN OR DISTRESS AT THIS TIME CL IN REACH WILL CONT TO MONITOR
[2018-12-14 19:54] LABS: MACROPHAGES BF 54 %; MESOTHELIALS BF 3 %; NEUT - BF 8 %
[2018-12-14 20:00] VITALS: BP 137/51
[2018-12-15] VITALS: BP 146/62
--- NOTE | 2018-12-15 02:25 | NUR ---
I have reviewed this patient and I concur with the Shift Assessment completed by the Licensed Practical Nurse today this shift.
[2018-12-15 06:33] LABS: BASOPHILS 0.2 % (0-2); EOSINOPHILS 1.4 % (0-7); HEMATOCRIT 29.4 % (42.0-54.0); HEMOGLOBIN 9.8 g/dL (13.5-17.5); LYMPHOCYTES 15.8 % (15-50); MCH 30.9 pg (26.0-34.0); MCHC 33.3 g/dL (31.0-37.0); MCV 92.7 fL (80.0-100.0); MEAN PLATELET VOLUME 10.3 fL (7.4-10.4); MONOCYTES 6.6 % (2-11); PLATELET COUNT 122 10x3/uL (130-400); RBC 3.17 10x6/uL (4.20-6.10); RDW 13.5 % (11.5-14.5); WBC 4.2 10x3/uL (4.8-10.8)
[2018-12-15 06:45] LABS: ANION GAP 15.8 mmol/L (8-16); CALCIUM 7.4 mg/dL (8.5-10.1); CARBON DIOXIDE 27.9 mmol/L (21.0-32.0); CREATININE - SERUM 7.6 mg/dL (0.6-1.3); PHOSPHOROUS 7.4 mg/dL (2.5-4.9)
[2018-12-15 06:46] LABS: POTASSIUM - SERUM 4.7 mmol/L (3.5-5.1)
--- NOTE | 2018-12-15 07:10 | NUR ---
REPORT RECEIVED FORM BLUEPRINTING AND PHOTOCOPY SUPERVISOR AND PATIENT CARE ASSUMED. PATIENT LAYING IN BED ON RT SIDE WITH EYES CLOSED AND BREATHING EVENLY. WILL CONTINUE WITH PLAN OF CARE. SR UP X 2 BED IN LOW POSITION AND CALL LIGHT IN REACH.
[2018-12-15 07:29] LABS: APTT 34.1 SECONDS (22.8-39.4); INR 1.19 (0.85-1.17); PROTIME 14.6 SECONDS (11.6-15.0)
[2018-12-15 09:38] VITALS: BP 145/64
--- NOTE | 2018-12-15 11:40 | NUR ---
PATIENT IS STABLE, VSS AND RESTING QUIETLY. WILL CONTINUE TO MONITOR. SR UP X2 BED IN LOW POSTION AND CALL LIGHT IN REACH.
[2018-12-15 17:57] VITALS: BP 157/53
--- NOTE | 2018-12-15 18:04 | NUR ---
PATIENT MEDICATED WITH ULTRAM PER MAR FOR PAIN. PATIENT SITTING UP IN BED EATING SUPPER. WILL CONTINUE TO MONITOR.
--- NOTE | 2018-12-15 19:26 | NUR ---
RECIEVED UP IN BED WITH EYES OPEN AND TV ON. ALERT AND ORIENTED X4. UP AD JACQUELYN TO B/R. AVF TO LEFT ARM WITH GOOD BRUIT AND TRILL. DENIES ANY NEEDS AT THI9S TIME.
[2018-12-15 20:00] VITALS: BP 178/73
[2018-12-16] VITALS: BP 173/88
[2018-12-16 03:16] LABS: BASOPHILS 0.2 % (0-2); EOSINOPHILS 1.1 % (0-7); HEMATOCRIT 30.6 % (42.0-54.0); HEMOGLOBIN 10.3 g/dL (13.5-17.5); IMMATURE GRANULOCYTES 0.2 % (0-5); LYMPHOCYTES 18.1 % (15-50); MCHC 33.7 g/dL (31.0-37.0); MCV 92.2 fL (80.0-100.0); MEAN PLATELET VOLUME 10.1 fL (7.4-10.4); MONOCYTES 5.5 % (2-11); NEUTROPHILS 74.9 % (40-80); PLATELET COUNT 122 10x3/uL (130-400); RBC 3.32 10x6/uL (4.20-6.10); RDW 13.8 % (11.5-14.5); WBC 4.8 10x3/uL (4.8-10.8)
[2018-12-16 03:30] LABS: ANION GAP 19.5 mmol/L (8-16); CALCIUM 7.4 mg/dL (8.5-10.1); CARBON DIOXIDE 25.7 mmol/L (21.0-32.0); CREATININE - SERUM 8.7 mg/dL (0.6-1.3); PHOSPHOROUS 7.4 mg/dL (2.5-4.9); POTASSIUM - SERUM 5.2 mmol/L (3.5-5.1)
[2018-12-16 04:00] VITALS: BP 172/79
--- NOTE | 2018-12-16 07:00 | NUR ---
RECEIVED REPORT. ASSUMED CARE OF PATIENT. PATIENT WANTING TO KNOW IF HE WILL RECEIVE DIALYSIS TODAY AND IS XRAY COMING TO GET HIM. INFORMED PATIENT HE SCHEDULED FOR DIALYSIS TODAY BUT UNSURE IF HE WILL GO TO RADIOLOGY DEPARTMENT OR THEY WILL BRING THE MACHINE TO HIS ROOM. CALL LIGHT WITHIN REACH. NO DISTRESS.
--- NOTE | 2018-12-16 09:37 | NUR ---
PATIENT REFUSED NICOTINE PATCH AT THIS TIME.
--- NOTE | 2018-12-16 11:19 | NUR ---
FSBS 165. NO INSULIN PATIENT IS RECEIVING DIALYSIS AND NOT EATING AT THIS TIME.
--- NOTE | 2018-12-16 12:09 | NUR ---
PATIENT REMAINS IN DIALYSIS AT THIS TIME. WILL ADMINISTERE MEDICATIONS WHEN PATIENT RETURNS TO THE FLOOR AND IS CONSUMING NOON MEAL.
--- NOTE | 2018-12-16 14:44 | NUR ---
PATIENT RETURNED FROM DIALYSIS. 3.5 LITERS OF FLUID REMOVED. NO DISTRESS. CONSUMING MEAL AT BEDSIDE AT THIS TIME.
[2018-12-16 16:41] VITALS: BP 171/82
--- NOTE | 2018-12-16 16:42 | NUR ---
FSBS 188. 2 UNITS HUMULIN ADMINISTERED PER SLIDING SCALE. MEDICATED FOR PAIN AT THIS TIME. NO DISTRESS.
[2018-12-16 19:06] LABS: ACID FAST SMEAR Negative (()); AFB SPECIMEN PROCESSING Not Indicated (())
[2018-12-16 20:00] VITALS: BP 170/87
--- NOTE | 2018-12-16 21:12 | NUR ---
RECIEVED LAYING IN BED WITH EYES OPEN AND TV ON. ALERT AND ORIENTED X4. UP AD JACQUELYN TO B/R. LEFT ARM RESERVED D/T AVF. RECIEVED DIALYSIS TODAY. IV TO RIGHT FA SL.. DSG TO LEFT SIDE MID BACK CDI. FSBS 110. DENIES ANY NEEDS AT THIS TIME.
[2018-12-17] VITALS: BP 162/80
[2018-12-17 03:45] LABS: BASOPHILS 0.4 % (0-2); HEMATOCRIT 30.6 % (42.0-54.0); HEMOGLOBIN 10.4 g/dL (13.5-17.5); IMMATURE GRANULOCYTES 0.2 % (0-5); LYMPHOCYTES 20.9 % (15-50); MCH 31.3 pg (26.0-34.0); MCV 92.2 fL (80.0-100.0); MEAN PLATELET VOLUME 10.1 fL (7.4-10.4); MONOCYTES 6.7 % (2-11); NEUTROPHILS 70.8 % (40-80); PLATELET COUNT 132 10x3/uL (130-400); RBC 3.32 10x6/uL (4.20-6.10); RDW 13.7 % (11.5-14.5); WBC 4.9 10x3/uL (4.8-10.8)
[2018-12-17 03:55] LABS: ANION GAP 17.2 mmol/L (8-16); CALCIUM 7.9 mg/dL (8.5-10.1); CARBON DIOXIDE 25.6 mmol/L (21.0-32.0); CREATININE - SERUM 7.1 mg/dL (0.6-1.3); PHOSPHOROUS 5.8 mg/dL (2.5-4.9); POTASSIUM - SERUM 4.8 mmol/L (3.5-5.1)
[2018-12-17 04:00] VITALS: BP 167/77
--- NOTE | 2018-12-17 07:00 | NUR ---
RECEIVED REPORT. ASSUMED CARE OF PATIENT. RESTING ON LEFT LATERAL SIDE. RESP EVEN AND UNLABORED. NO DISTRESS. CALL LIGHT WITHIN REACH.
[2018-12-17 07:57] VITALS: BP 195/85
--- NOTE | 2018-12-17 08:55 | NUR ---
NICOTINE PATCH REFUSED AT THIS TIME.
[2018-12-17 11:57] VITALS: BP 162/78
--- NOTE | 2018-12-17 11:58 | NUR ---
FSBS 117. NO INSULIN PER SLIDING SCALE. MEDICATED FOR PAIN AT THIS TIME. NO DISTRESS.
--- NOTE | 2018-12-17 15:06 | NUR ---
PATIENT RESTING IN BED WITH EYES CLOSED. RESP EVEN AND UNLABORED. NO DISTRESS. CALL LIGHT WITHIN REACH.
[2018-12-17 15:57] VITALS: BP 170/81
--- NOTE | 2018-12-17 16:56 | NUR ---
FSBS 167. 2 UNITS HUMULIN INSULIN ADMINISTERED PER SLIDING SCALE. PATIENT SITTING TO SIDE OF BED CONSUMING PM MEAL AT THIS TIME. NO DISTRESS.
--- NOTE | 2018-12-17 17:55 | NUR ---
MEDICATED FOR PAIN AT THIS TIME. NO DISTRESS.
[2018-12-17 20:35] VITALS: BP 133/79
--- NOTE | 2018-12-17 20:35 | NUR ---
RECIEVED UP IN BED WITH EYES OPEN AND TV ON. ALERT AND ORIENTED X4. UP AD JACQUELYN TO TOILET. STATES HE STILL URINATES. LEFT ARM RESERVED D/T AVF. DSG TO LEFT SIDE OF BACK CDI. IV TO RIGHT FA. DENIES ANY OTHER NEEDS QAT THIS TIME.
[2018-12-18 01:13] VITALS: BP 169/84
[2018-12-18 05:26] VITALS: BP 187/83
--- NOTE | 2018-12-18 07:15 | NUR ---
ASSESSMENT DONE DENIES NEEDS
[2018-12-18 08:16] VITALS: BP 179/68
--- NOTE | 2018-12-18 10:03 | NUR ---
I have reviewed this patient and I concur with the Shift Assessment completed by the Licensed Practical Nurse today this shift.
[2018-12-18 11:36] VITALS: BP 167/89
[2018-12-18 15:40] VITALS: BP 184/71
--- NOTE | 2018-12-18 17:20 | NUR ---
WITHOUT CHANGES OR DISTRESS NOTED AT THIS TIME. DENIES NEEDS.
--- NOTE | 2018-12-18 19:32 | NUR ---
RECIEVED UP IN BED WITH EYES OPEN. REQUESTING PAIN MED FOR CHRONIC BACK PAIN, ALERT AND ORIENTED X4. UP AD JACQUELYN. LEFT ARM RESERVED D/T AVF. FISTULA HAS A GOOD BRUIT AND TRILL. DENIES ANY OTHER NEEDS.
[2018-12-18 20:00] VITALS: BP 190/82
[2018-12-19] VITALS: BP 110/59
[2018-12-19 04:00] VITALS: BP 163/45
[2018-12-19 05:24] LABS: BASOPHILS 0.4 % (0-2); EOSINOPHILS 1.1 % (0-7); HEMATOCRIT 30.3 % (42.0-54.0); HEMOGLOBIN 10.3 g/dL (13.5-17.5); IMMATURE GRANULOCYTES 0.4 % (0-5); LYMPHOCYTES 21.3 % (15-50); MCH 30.7 pg (26.0-34.0); MCV 90.2 fL (80.0-100.0); MEAN PLATELET VOLUME 9.8 fL (7.4-10.4); MONOCYTES 5.7 % (2-11); NEUTROPHILS 71.1 % (40-80); PLATELET COUNT 125 10x3/uL (130-400); RBC 3.36 10x6/uL (4.20-6.10); RDW 13.9 % (11.5-14.5); WBC 5.3 10x3/uL (4.8-10.8)
[2018-12-19 05:35] LABS: ANION GAP 19.2 mmol/L (8-16); CALCIUM 7.8 mg/dL (8.5-10.1); CARBON DIOXIDE 22.6 mmol/L (21.0-32.0); CREATININE - SERUM 10.8 mg/dL (0.6-1.3); POTASSIUM - SERUM 4.8 mmol/L (3.5-5.1)
--- NOTE | 2018-12-19 07:10 | NUR ---
REPORT RECEIVED FROM [facility] POST DELIVERY AND PATIENT CARE ASSUMED. PATIENT AWAKE ALERT AND ORIENTED X 4. PATIENT DENIES ANY NEEDS OR PAIN. WILL CONTINUE WITH PLAN OF CARE. SR UP X 2 BED IN LOW POSTION AND CALL LIGHT IN REACH.
[2018-12-19 08:08] VITALS: BP 194/81
--- NOTE | 2018-12-19 09:45 | NUR ---
PATIENT IS STABLE AND VSS. PATIENT TO DIALYSIS VIA AND HOPSITAL STAFF.
[2018-12-19 10:09] LABS: ANA REFLEX - DIRECT Negative (Negative)
--- NOTE | 2018-12-19 11:15 | NUR ---
PHONE CALL FROM DIALYSIS. PATIENT REQUESTING ULTRAM. ULTRAM TAB TAKEN TO PATIENT IN DIALYSIS . PATIENT IS STABLE AND VSS.
--- NOTE | 2018-12-19 12:21 | NUR ---
Nutrition follow-up: Diet: Renal ADA PO intake 100% of all meals Labs reviewed; PO4 still elevated +BM Wt: 200# RDN following.
--- NOTE | 2018-12-19 12:45 | NUR ---
PATIENT RETURNED TO ROOM VIA AND HOSPITAL PERSONNEL. PATIENT IS STABLE AND VSS. WILL CONTINUE TO MONITOR.
--- NOTE | 2018-12-19 13:00 | NUR ---
PATIENT REFUSED BS. STATES HE IS GOING HOME.
--- NOTE | 2018-12-19 15:30 | NUR ---
PATIENT LAYING IN BED ON BACK WITH EYES CLOSED AND BREATHING EVENLY. WILL CONTINUE TO MONITOR. SR UP X 2 BED IN LOW POSITION AND CALL LIGHT IN REACH.
--- NOTE | 2018-12-19 16:29 | MORECARE ---
CASE MANAGEMENT DISCHARGE SUMMARY PATIENT: RASHIDA OVIEDO UNIT: [id number] ADM DATE: 12/10/18 AGE: 63 : 55 SEX: M ROOM/BED: D.2106 AUTHOR: EHSAN,DOC PHYSICIAN: REFERRING PHYSICIAN: SIL DUGAN MD DATE OF SERVICE: 12/19/18 Discharge Plan Patient Name: RASHIDA OVIEDO Facility: [facility]:[place] : 1955 Planned Disposition: Home Anticipated Discharge Date: 12/19/18 Discharge Date: Expected LOS: 9 Initial Reviewer: [email or web address] Initial Review Date: 12/12/2018 Generated: 12/19/18 5:28 pm DCP- Discharge Planning Updated by FRANK: Arnulfo Gore on 12/12/18 12:[address] Patient Name: RASHIDA OVIEDO Admission Status: ER Accout number: [id number] Admission Date: 12-10-2018 : 1955 Admission Diagnosis: Attending: SIL DUGAN Current LOS: 2 Anticipated DC Date: Planned Disposition: Home Primary Insurance: MEDICAID [place] Discharge Planning Comments: CM RECEIVED ORDER FOR FALL RISK, MET WITH PT IN ROOM TO DISCUSS DISCHARGE PLANNING AND NEEDS. PT REPORTS LIVING AT HOME INDEPENDENTLY WITH ADULT SON. PT HAS NO MEDICAL EQUIPMENT AND NO OUTSIDE SERVICES ASSISTING IN THE HOME. PT GOES TO DIALYSIS AT 1000AM, TTS AT [facility], PT'S SON DRIVES PT TO AND FROM DIALYSIS. CM DISCUSSED AVAILABILITY OF HOME HEALTH, REHAB SERVICES AND MEDICAL EQUIPMENT. PT DENIES DISCHARGE NEEDS, REPORTS HIS SON WILL PICK HIM UP FOR DISCHARGE HOME. PT PLANS TO DISCHARGE HOME WITH ADULT SON, DENIES DISCHARGE NEEDS AT THIS TIME. CM TO FOLLOW AND ASSIST NEEDED. Passport Support Associate: Arnulfo Gore DCPIA - Discharge Planning Initial Assessment Updated by [id number]: Arnulfo Gore on 12/12/18 1:11 pm * Is the patient Alert and Oriented? Yes * How many steps to enter\\exit or inside your home? * PCP DR. LA PATIENT REPORTS HE IS "IN PROCESS" OF GETTING IN WITH A NEW PRIMARY CARE DOCTOR. * [facility] * Preadmission Environment Home with Family * ADLs Independent * Equipment None * Other Equipment NO MEDICAL EQUIPMENT PROVIDER PREFERENCE * List name and contact numbers for known caregivers / representatives who currently or will assist patient after discharge: KINSEY CHAVARRIA,SISTER, CLAY OVIEDO, SON, * Verbal permission to speak to the caregivers and representatives has been obtained from the patient. N/A * Community resources currently utilized Other * Please name any agencies selected above. OUT[facility] DIAL[facility]IS, [facility], TTS, 1000 AM, SON DRIVES * Additional services required to return to the preadmission environment? No * Can the patient safely return to the preadmission environment? Yes * Has this patient been hospitalized within the prior 30 days at any hospital? No External Providers External Provider: [id number] [place] Contact Date: 12/19/2018 Service Request Date: Service Type: Resolution: Reviewer: Comments: Last DP export: 12/12/18 12:24 p Patient Name: RASHIDA OVIEDO Page [id number] at 1629 All edits/amendments must be made on the electronic document DICTATION DATE: 12/19/181627 STUDENT OUTREACH COORDINATOR: RHONDA 12/19/181627 RPT#: [id number] DC DATE: STATUS: ADM IN [facility] [address] [place] [address] END OF REPORT
--- NOTE | 2018-12-19 16:37 | MORECARE ---
CASE MANAGEMENT DISCHARGE SUMMARY PATIENT: RASHIDA OVIEDO UNIT: [id number] ADM DATE: 12/10/18 AGE: 63 : 55 SEX: M ROOM/BED: D.2106 AUTHOR: EHSAN,DOC PHYSICIAN: REFERRING PHYSICIAN: SIL DUGAN MD DATE OF SERVICE: 12/19/18 Discharge Plan Patient Name: RASHIDA OVIEDO Facility: [facility]:[place] : 1955 Planned Disposition: Home Anticipated Discharge Date: 12/19/18 Discharge Date: Expected LOS: 9 Initial Reviewer: [email or web address] Initial Review Date: 12/12/2018 Generated: 12/19/18 5:37 pm Comments DCP- Discharge Planning Updated by [id number]: Arnulfo Gore on 12/19/18 3:[address] Patient Name: RASHIDA OVIEDO Encounter No: [id number] : 1955 Primary Insurance: MEDICAID [place] Anticipated DC Date: 12-19-2018 Planned Disposition: Home DCP follow-up note: CM RECEIVED OXYGEN ORDER. CM MET WITH PT IN ROOM TO DISCUSS DISCHARGE NEEDS AND PLANNING. CM DISCUSSED AVAILABILITY OF HOME HEALTH, REHAB SERVICES AND MEDICAL EQUIPMENT. CM GAVE PT MEDICAL EQUIPMENT PROVIDER LISTING, PT SIGNED CONSENT FOR NO PREFERENCE FOR OXYGEN PROVIDER. PT DENIES FURTHER DISCHARGE NEEDS. SON TO TRANSPORT HOME AT DISCHARGE. CM CALLED [facility], , SPOKE TO BHANU AND PROVIDED REFERRAL INFORMATION. CM FAXED REFERRAL TO [facility], . BHANU ADVISED THEY WILL DELIVER PORTABLE OXYGEN TO HOSPITAL TODAY AND WILL ARRANGE HOME OXYGEN WHEN PT ARRIVES AT HOME AFTER DISCHARGE. ENTERPRISE APPLICATIONS MANAGER NURSE NOTIFIED. Arnulfo Gore CASE PANCHO DCP- Discharge Planning Updated by [id number]: Arnulfo Gore on 12/12/18 12:[address] Patient Name: RASHIDA OVIEDO Admission Status: ER Accout number: [id number] Admission Date: 12-10-2018 : 1955 Admission Diagnosis: Attending: SIL DUGAN Current LOS: 2 Anticipated DC Date: Planned Disposition: Home Primary Insurance: MEDICAID [place] Discharge Planning Comments: CM RECEIVED ORDER FOR FALL RISK, MET WITH PT IN ROOM TO DISCUSS DISCHARGE PLANNING AND NEEDS. PT REPORTS LIVING AT HOME INDEPENDENTLY WITH ADULT SON. PT HAS NO MEDICAL EQUIPMENT AND NO OUTSIDE SERVICES ASSISTING IN THE HOME. PT GOES TO DIALYSIS AT 1000AM, TTS AT [facility], PT'S SON DRIVES PT TO AND FROM DIALYSIS. CM DISCUSSED AVAILABILITY OF HOME HEALTH, REHAB SERVICES AND MEDICAL EQUIPMENT. PT DENIES DISCHARGE NEEDS, REPORTS HIS SON WILL PICK HIM UP FOR DISCHARGE HOME. PT PLANS TO DISCHARGE HOME WITH ADULT SON, DENIES DISCHARGE NEEDS AT THIS TIME. CM TO FOLLOW AND ASSIST NEEDED. Boom Stick Worker: Arnulfo Gore DCPIA - Discharge Planning Initial Assessment Updated by [id number]: Arnulfo Gore on 12/12/18 1:11 pm * Is the patient Alert and Oriented? Yes * How many steps to enter\\exit or inside your home? * PCP DR. LA PATIENT REPORTS HE IS "IN PROCESS" OF GETTING IN WITH A NEW PRIMARY CARE DOCTOR. * [facility] * Preadmission Environment Home with Family * ADLs Independent * Equipment None * Other Equipment NO MEDICAL EQUIPMENT PROVIDER PREFERENCE * List name and contact numbers for known caregivers / representatives who currently or will assist patient after discharge: KINSEY CHAVARRIA,SISTER, CLAY OVIEDO, SON, * Verbal permission to speak to the caregivers and representatives has been obtained from the patient. N/A * Community resources currently utilized Other * Please name any agencies selected above. OUTPATIENT DIALYSIS, [facility], TTS, 1000 AM, SON DRIVES * Additional services required to return to the preadmission environment? No * Can the patient safely return to the preadmission environment? Yes * Has this patient been hospitalized within the prior 30 days at any hospital? No Last DP export: 12/19/18 3:28 p Patient Name: RASHIDA OVIEDO Page [id number] at 1637 All edits/amendments must be made on the electronic document DICTATION DATE: 12/19/181636 TEST CELL TECHNICIAN: RHONDA 12/19/181636 RPT#: [id number] DC DATE: STATUS: ADM IN [facility] [address] [place] [address] END OF REPORT
[2018-12-19] MEDS ORDERED: ALBUTEROL2.5 MG/3 M INH (17:05)
[2018-12-19] MEDS ORDERED: ALBUTEROL SULF8.5 GM INH (17:10)
--- NOTE | 2018-12-19 17:10 | NUR ---
PATIENT SEEN WALKING DOWN ST WITH O2 TANK AND BELONGINGS. ASKED THE PATIENT WHERE HE WAS GOING. HE SAID DOWNSTAIRS BUT ILL BE RIGHT BACK. I INSTRUCTED PATIENT TO WAIT AND LET ME REMOVE HIS IV FIRST. JENNIFER RUSH RN WITNESSED CONVERSATION AND JENNIFER OFFERED TO REMOVE IV. JENNIFER GATHERED SUPPLIES AND RETURNED TO FIND PATIENT HAD LEFT THE FLOOR. CALLED HIS SISTER KINSEY EXPLAINED THAT HE COULD NOT LEAVE WE NEEDED TO TAKE OUT IV. SHE INFORMED THAT [employer] ON THE WAY BUT WOULD CONTACT THE [employer].
--- NOTE | 2018-12-19 17:25 | NUR ---
RECEIVED CALL FROM REHAB THAT PATIENT WAS DOWN IN REHAB AGITATED, TRIED TO JUMP OUT OF WINDOW AND SECURITY HAD BEEN CALLED. I WAS REQUESTED TO COME TO REHAB. UPON ENTERING REHAB, SEVERAL ICU NURSES AND SECURITY WERE STANDING NEAR PATIENT IN WC. IV HAD BEEN REMOVED. I ASKED WHO REMOVED THE IV AND GLEN PERRY STATED THAT SHE DID. SHE AND VICKY DICKERSON STATED THAT DUE TO PATIENTS AGITATION AND BEHAVIOR THAT PATIENT COULD NOT SIGN PAPERS AND LEAVE BUT WILL BE TAKEN TO ER FOR EVALUATION. PATIENT WAS THEN TRANSPORTED VIA AND GLEN DICKERSON RN TO ER.
--- NOTE | 2018-12-19 17:50 | NUR ---
RECIEVED PHONE CALL FROM QUAN EDDY TO COME TO ER AND EVALUATE PATIENT TO SEE IF SOUND MIND AND TO VERIFY IF OK TO LEAVE AMA. I WAS INFORMED THAT THIS NURSE NEEDED TO COME OR CHARGE NURSE OR ACCOUNTANT MACHINE PROCESSING. SPOKE WITH JENNIFER CHARGE NURSE. INFORMED NURSE HARRIS WE ARE NOT QUALIFIED NOR RESPONSIBLE FOR PSYSHIATRIC EVALUALTION. CONTACTED [facility] AGENCY SERVICE COORDINATOR AND SHE AGREED THAT PSYCHIATRIC EVAL IS NOT TO BE PERFORMED BY NURSINGING STAFF. SHE STATED PATIENT IS AMA NO EVAL NEEDED. INFORMED NUNU IN ER.
--- NOTE | 2018-12-19 18:15 | NUR ---
VICKY YANG TO FLOOR ASKING ABOUT SHOLA POLLARD. CHARGE NURSE AND I INFORMED THAT EVAL WILL NOT BE PERFOMRED BY NURSING STAFF AND STRUCTURAL MANAGER AGREED. SHE VERBALIZED UNDERSTANDING AND LEFT THE UNIT. WITHIN ONE MINUTE, VICKY MENDENHALL FROM OUR UNIT STATED THAT MR OVIEDO HAD BEEN TRANSPORTED BY GLEN AND ADITIONAL ER NURSE AND WAS LEFT AT FRONT COUNTER. I APPROACHED FRONT COUNTER WHERE PATIENT WAS SITTING. PATIENT SITTING CALMLY IN WC STATING HE GOT LOST COMING BACK UPSTAIRS AND SAID A MALE NURSE IN ER MADE HIM MAD. ALTAGRACIA AND VERBAL INSTRUCTIONS GIVEN TO PATIENT . PATIENT VERBALIZED UNDERSTANDING AND SIGNED DC INSTRUCTIONS. PATIENT TO FRONT DOOR VIA WC AND HOSPITAL PERSONNEL. PATIENT DC TO HOME FOR SELF CARE. PATIENT TO PRIVATE VEHICLE DRIVEN BY SISTER KINSEY.
[2018-12-20 14:11] LABS: FUNGUS STAIN Final report (())
== END 2018-12-19 18:40 | disposition home or self-care (01) | DRG 640 ==
LOC: D.ER 14:37 → D.M2 17:36
PROVIDERS: Family Medicine; Internal Medicine Nephrology; Internal Medicine Pulmonary Disease; Radiology Diagnostic Radiology; ADMIT Internal Medicine; ATTEND Internal Medicine
PROC: 5A1D70Z Performance of Urinary Filtration, Intermittent, Less than 6 Hours Per Day (ICD-10-PCS; principal; 2018-12-11)
PROC: 0W993ZZ Drainage of Right Pleural Cavity, Percutaneous Approach (ICD-10-PCS; 2018-12-14)
DX: E87.5 Hyperkalemia (principal); N18.6 End stage renal disease; J18.9 Pneumonia, unspecified organism; I12.0 Hypertensive chronic kidney disease with stage 5 chronic kidney disease or end stage renal disease; J90 Pleural effusion, not elsewhere classified; J98.11 Atelectasis; J44.0 Chronic obstructive pulmonary disease with (acute) lower respiratory infection; M06.9 Rheumatoid arthritis, unspecified; E11.22 Type 2 diabetes mellitus with diabetic chronic kidney disease; Z99.2 Dependence on renal dialysis; Z91.15 Patient's noncompliance with renal dialysis; I48.91 Unspecified atrial fibrillation; J44.9 Chronic obstructive pulmonary disease, unspecified; F32.9 Major depressive disorder, single episode, unspecified; F17.210 Nicotine dependence, cigarettes, uncomplicated; D63.1 Anemia in chronic kidney disease; E83.39 Other disorders of phosphorus metabolism; E11.40 Type 2 diabetes mellitus with diabetic neuropathy, unspecified